=== PATIENT | male | born 1935 | race Caucasian/White ===

== ENCOUNTER 2017-05-12 17:41 | Inpatient (IN) ==
[2017-05-12] MEDS ORDERED: 0.9 % SODIUM CHLORIDE 1,000 ML IV ONE ×2 (17:46→19:04)
[2017-05-12 18:21] LABS: Basophils # (Auto) 0 K/mcL (0.0-0.3); Basophils % (Auto) 0.1 % (0.0-2.0); Eosinophils # (Auto) 0 K/mcL (0.0-0.7); Eosinophils % (Auto) 0.1 % (0.0-7.0); Granulocytes % (Auto) 87.7 % (38.0-78.0); Lymphocytes # (Auto) 0.9 K/mcL (1.5-4.8); Lymphocytes % (Auto) 7.2 % (15.5-49.0); Mean Cell Volume 95.5 fL (80.0-100.0); Mean Corpuscular HGB Conc 33.4 g/dL (31.0-36.0); Mean Corpuscular Hemoglobin 31.9 pg (26.0-34.0); Monocytes # (Auto) 0.6 K/mcL (0.1-0.9); Monocytes % (Auto) 4.9 % (1.0-12.0); Platelet Count 141 K/mcL (140-440); RBC 4.16 M/mcL (4.50-5.90); Red Cell Distribution Width 14.1 % (11.5-14.5)
--- NOTE | 2017-05-12 18:21 | Emergency Department Note ---
Abdominal Pain HPI - General Chief Complaint: Abdominal Pain Stated Complaint: Abd pain, N/V Time Seen by Provider: 05/12/17 17:49 Source: patient Mode of arrival: ambulatory Limitations: no limitations - History of Present Illness HPI Narrative: 82-year-old male presents with family due to increased weakness, poor intake and continued abdominal pain. He was seen here yesterday morning for urinary retention and was diagnosed with a large kidney stone in the left renal pelvis. He was sent home with Levaquin for a urinary tract infection and hydrocodone for pain. His states he has been retching after eating but has not vomited today. She is given him his Levaquin. She states he is taking in fluids but he is very shaky and weak. She states that she has emptied the catheter leg bag 3 or 4 times since yesterday. He has been sweating a lot throughout the night and she took his temperature and it was 99.9. He states he is feeling okay right now and the abdominal pain is on the left side. He also had a knee replacement done last month and after surgery had a stomach ulcer. He has had some nausea from that. His gave him a dissolvable medication that coats the stomach and give him that pill about 3:00 this afternoon. He states his nausea is under control. He has had a history of kidney stones and lithotripsy. He states he feels weak all over. He has not had a bowel movement since Tuesday. They are wanting to get the catheter out on Tuesday but they are concerned that he is very weak today. He has not fallen. He takes Plavix due to multiple vascular surgeries on the lower extremities. No shortness of breath or chest pain. His gives his fluids but his thirst is not quenched. - Related Data Home Medications Medication Instructions Recorded Confirmed Clopidogrel [Plavix] 75 mg PO DAILY 06/30/15 05/12/17 Tamsulosin [Flomax] 0.4 mg PO ONCE 06/30/15 05/12/17 pantoprazole 40 mg tablet,delayed 40 mg PO QDAY 01/27/17 05/12/17 release Previous Rx's Medication Instructions Recorded HYDROcodone/APAP 5/325MG [[place] 1 tab PO Q4HP PRN #14 tablet 05/11/17 5/325Mg] Levofloxacin [Levaquin] 500 mg PO DAILY #7 tablet 05/11/17 Ondansetron HCl [Zofran ODT] 4 mg SL Q4-6HP PRN #10 tablet 05/11/17 Allergies Allergy/AdvReac Type Severity Reaction Status Date / Time cilostazol AdvReac Intermediate RAPID HEART Verified 02/16/17 09:41 finasteride [From PROSCAR] AdvReac Intermediate WEAK BP LOW Verified 02/16/17 09 :41 morphine AdvReac Intermediate VOMITING Verified 02/16/17 09:41 From DILAUDID Allergy Unknown THROAT Uncoded 02/16/17 09:41 SWELLING Review of Systems All systems ED: reviewed and negative except as stated. Abdominal Pain PMH - Past Medical History Medical history: Reports: GI bleed (gastric ulcer), kidney stones, other ( periphera vascular disease, hiatal hernia) Surgical history ED: Reports: orthopedic, other (right knee replacement) Psychiatric history: Reports: no psych history Family history: Reports: no significant family history - Social History Smoking status: Never smoker Physical Exam - General Limitations: no limitations General appearance: alert, in no apparent distress - Head Head exam: atraumatic - Eye Eye exam: Present: other (right eye cataract) - Neck Neck exam: Present: normal inspection, full ROM. Absent: tenderness, lymphadenopathy - Chest Chest inspection: Present: normal inspection, symmetric chest wall rise - Respiratory Respiratory exam: Present: normal lung sounds bilaterally - Abdominal Exam Abdominal exam: Present: soft, tenderness, normal bowel sounds. Absent: guarding, rebound, rigidity, psoas sign Abdominal tenderness: Present: LUQ, LLQ, epigastrium, moderate - Extremities Exam Extremities exam: Present: normal inspection, full ROM - Neurological Exam Neurological exam: Present: alert, oriented X3, CN II-XII intact - Psychiatric Psychiatric exam: Present: normal affect, normal mood - Skin Skin exam: Present: warm, dry, intact Course Course Narrative: He will be admitted and care will be followed by Dr. Khalil. Vital Signs Temperature 98.7 F 05/12/17 17:42 Pulse Rate 92 H 05/12/17 17:42 Respiratory Rate 20 05/12/17 17:42 Blood Pressure 153/83 05/12/17 17:42 Pulse Oximetry (%) 95 05/12/17 17:42 Temperature 98.7 F 05/12/17 17:42 Pulse Rate 92 H 05/12/17 18:31 Respiratory Rate 20 05/12/17 17:42 Blood Pressure 144/72 05/12/17 18:31 Pulse Oximetry (%) 96 05/12/17 18:31 Abdominal Pain - MDM Narrative Medical decision making narrative: Labs were significant for a rise in the creatinine from 0.9 yesterday to 1.5 today. BUN went from 23 to 32 today. He also had an increase in his white count from 9.5 yesterday to 12.5 today. - Lab Data Lab results reviewed: Yes I reviewed the patient's lab results. Result diagrams: 05/12/17 17:50 05/12/17 17:50 Lab Results 05/12/17 05/12/17 05/12/17 Range/Units 17:50 17:50 18:44 WBC 12.5 H (4.5-11.0) K/mcL RBC 4.16 L (4.50-5.90) M/mcL Hgb 13.3 L (13.5-16.5) g/dL Hct 39.7 L (41.0-55.0) % MCV 95.5 (80.0-100.0) fL MCH 31.9 (26.0-34.0) pg MCHC 33.4 (31.0-36.0) g/dL RDW 14.1 (11.5-14.5) % Plt Count 141 (140-440) K/mcL MPV 8.5 (7.4-10.4) fL Gran % 87.7 H (38.0-78.0) % Lymph % (Auto) 7.2 L (15.5-49.0) % [place] % (Auto) 4.9 (1.0-12.0) % Eos % (Auto) 0.1 (0.0-7.0) % Baso % (Auto) 0.1 (0.0-2.0) % Gran # 11.0 H (1.8-8.0) K/mcL Lymph # (Auto) 0.9 L (1.5-4.8) K/mcL [place] # (Auto) 0.6 (0.1-0.9) K/mcL Eos # (Auto) 0 (0.0-0.7) K/mcL Baso # (Auto) 0 (0.0-0.3) K/mcL VBG Lactic Acid 1.0 (0.5-2.2) mmol/L Sodium 135 (133-145) mmol/L Potassium 4.1 (3.3-5.1) mmol/L Chloride 101 (96-108) mmol/L Carbon Dioxide 22 (22-30) mmol/L Anion Gap 12.0 (8-16) BUN 32 H (8-23) mg/dl Creatinine 1.5 H (0.7-1.2) mg/dl GFR Calculation 43 Glucose 170 H (70-105) mg/dL Calcium 9.3 (8.6-10.4) mg/dl Total Bilirubin 0.7 (0.0-1.0) mg/dL AST 52 H (0-37) U/l ALT 79 H (0-40) U/l Alkaline Phosphatase 124 H (39-117) U/L Total Protein 6.2 (5.9-8.4) gm/dL Albumin 3.4 (3.2-5.2) gm/dL Globulin 2.8 (2.2-3.7) gm/dL Albumin/Globulin Ratio 1.2 (1.0-2.3) Urine Color Urine Appearance Urine pH (5.0-9.0) Ur Specific [place] (1.000-1.035) Urine Protein (NEG) mg/dL Urine Glucose (UA) (NEG) mg/dL Urine Ketones (NEG) mg/dL Urine Occult Blood (<0.03) mg/dL Urine Nitrate (NEG) Urine Bilirubin (NEG) mg/dL Urine Urobilinogen (NEG) mg/dL Ur Leukocyte Esterase (NEG) /uL Urine RBC (0-1) /hpf Urine WBC (0-4) /hpf Ur Squamous Epith Cells (0-4) /hpf Other Crystals (0) /hpf Urine Bacteria (0) /hpf Urine Mucus (0) /hpf Ur Culture Indicated? 05/12/17 Range/Units 19:03 WBC (4.5-11.0) K/mcL RBC (4.50-5.90) M/mcL Hgb (13.5-16.5) g/dL Hct (41.0-55.0) % MCV (80.0-100.0) fL MCH (26.0-34.0) pg MCHC (31.0-36.0) g/dL RDW (11.5-14.5) % Plt Count (140-440) K/mcL MPV (7.4-10.4) fL Gran % (38.0-78.0) % Lymph % (Auto) (15.5-49.0) % [place] % (Auto) (1.0-12.0) % Eos % (Auto) (0.0-7.0) % Baso % (Auto) (0.0-2.0) % Gran # (1.8-8.0) K/mcL Lymph # (Auto) (1.5-4.8) K/mcL [place] # (Auto) (0.1-0.9) K/mcL Eos # (Auto) (0.0-0.7) K/mcL Baso # (Auto) (0.0-0.3) K/mcL VBG Lactic Acid (0.5-2.2) mmol/L Sodium (133-145) mmol/L Potassium (3.3-5.1) mmol/L Chloride (96-108) mmol/L Carbon Dioxide (22-30) mmol/L Anion Gap (8-16) BUN (8-23) mg/dl Creatinine (0.7-1.2) mg/dl GFR Calculation Glucose (70-105) mg/dL Calcium (8.6-10.4) mg/dl Total Bilirubin (0.0-1.0) mg/dL AST (0-37) U/l ALT (0-40) U/l Alkaline Phosphatase (39-117) U/L Total Protein (5.9-8.4) gm/dL Albumin (3.2-5.2) gm/dL Globulin (2.2-3.7) gm/dL Albumin/Globulin Ratio (1.0-2.3) Urine Color Yellow Urine Appearance Clear Urine pH 6.0 (5.0-9.0) Ur Specific [place] 1.024 (1.000-1.035) Urine Protein 30 A (NEG) mg/dL Urine Glucose (UA) 50 A (NEG) mg/dL Urine Ketones Neg (NEG) mg/dL Urine Occult Blood 0.2 A (<0.03) mg/dL Urine Nitrate Neg (NEG) Urine Bilirubin Neg (NEG) mg/dL Urine Urobilinogen Neg (NEG) mg/dL Ur Leukocyte Esterase 250 A (NEG) /uL Urine RBC 73 H (0-1) /hpf Urine WBC 45 H (0-4) /hpf Ur Squamous Epith Cells 0 (0-4) /hpf Other Crystals Few A (0) /hpf Urine Bacteria 0 (0) /hpf Urine Mucus Few (0) /hpf Ur Culture Indicated? Yes Disposition Pt seen by [facility] INSPECTOR/PA only: No Clinical Impression: Urinary tract infection, Kidney stone on left side, Weakness Disposition: Xfer As Inpt ([facility]) Condition: Fair Referrals: Yolanda Odonnell, [Primary Care Provider] -
[2017-05-12 18:35] LABS: ALT/SGPT 79 U/l (0-40); Albumin 3.4 gm/dL (3.2-5.2); Albumin/Globulin Ratio 1.2 (1.0-2.3); Alkaline Phosphatase 124 U/L (39-117); Blood Urea Nitrogen 32 mg/dl (8-23)
[2017-05-12 19:37] LABS: Appearance,Urine CLEAR; Bacteria,Urine 0 /hpf (0); Bilirubin,Urine NEG (NEG); Color,Urine YELLOW; Glucose,Urine (UA) 50 mg/dL (NEG); Leukocyte Esterase,Urine 250 /uL (NEG); Mucus,Urine FEW /hpf (0); Nitrate,Urine NEG (NEG); Other Crystals,Urine FEW /hpf (0); Protein,Urine 30 mg/dL (NEG); Specific Gravity,Urine 1.024 (1.000-1.035); Urine Blood 0.2 mg/dL (<0.03); Urine RBC 73 /hpf (0-1); Urine Squamous Epithelial Cell 0 /hpf (0-4); Urine WBC 45 /hpf (0-4); Urobilinogen,Urine NEG (NEG)
[2017-05-12] MEDS ORDERED: HYDROmorphone 2 MG/ML SYRINGE IV ONE (19:50)
[2017-05-12] MEDS ORDERED: MAGNESIUM HYDROXIDE 30 ML ORAL.SUSP PO PRN (20:31)
[2017-05-12] MEDS ORDERED: ONDANSETRON 4 MG/2 ML VIAL IV PRN (20:31)
[2017-05-12] MEDS ORDERED: ACETAMINOPHEN 325 MG TABLET PO PRN (20:31)
[2017-05-12] MEDS ORDERED: oxyCODONE/APAP 5/325MG TABLET PO PRN (20:31)
[2017-05-12] MEDS ORDERED: DOCUSATE SODIUM 100 MG CAPSULE PO PRN (20:31)
[2017-05-12] MEDS ORDERED: POTASSIUM CHLORIDE 20 MEQ/10 ML VIAL IV ONE (20:39)
[2017-05-12] MEDS: POTASSIUM CHLORIDE 10 MEQ in 0.45 % SODIUM CHLORIDE 1,000 ML IV SCH (20:40)
--- NOTE | 2017-05-12 20:42 | Internal Med History&Physical ---
Medical - H&P: HPI Patient information: Note initiated : 05/12/17 at 8:37 pm Patient: Marshall Alberts 82 y/o M admitted on 05/12/17 for Abd pain, nephrolithiasis, hydronephrosis, UTI. History of present illness: Mr. Alberts is a 82 year old man admitted after failed outpt tx for UTI, nephrolithiasis with hydronephrosis. He reports he was in his normal state of health until 2 days ago, when he developed left lower quadrant discomfort and fullness. He was having some sweats as well as some nausea. He presented to the emergency room yesterday, and was found to have nephrolithiasis, left-sided hydronephrosis, UTI. Colvin catheter was placed, and he was started on IV Levaquin in the ER, and then discharged home on oral Levaquin. Overnight he had more sweats. His family reports that he is just been listless, dizzy, has significant anorexia, and continues to complain of extremely dry mouth. He has had nausea and minimal vomiting. He denies overt fever, headaches, new eye or ear symptoms, sore throat or cough , chest pain or palpitations, shortness of breath. He does not report flank pain. His says he has not had a bowel movement for about 3 days now. Has been tolerating the Colvin catheter since yesterday. ER evaluation shows that his white blood cell count is elevated now, and BUN and creatinine are now in the abnormal range. Patient is now being admitted for failing outpatient treatment. Medical History BPH (benign prostatic hyperplasia) (Acute) Dr. 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 [place], once per year Cataract (Chronic ~2013) Foreign body in eye (Chronic ~1962) Steel in eye 1961 Joint pain (Chronic) PAD (peripheral artery disease) (Chronic ~1986) unable to tolerate statin therapy Stomach ulcer (Chronic ~2004) Bleeding Ulcer 2006 Daytime sleepiness (Resolved) Surgical History H/O colonoscopy (Chronic) H/O shoulder surgery (Chronic) History of cholecystectomy (Chronic) Medication List clopidogrel 75 mg PO DAILY pantoprazole 40 mg PO QDAY tamsulosin 0.4 mg PO ONCE zofran prn levaquin 500 mg qd norco 5/325 q 4 h prn Allergies/Adverse Reactions cilostazol Adverse Reaction (Intermediate, Verified 02/16/17 09:41) RAPID HEART finasteride [From PROSCAR] Adverse Reaction (Intermediate, Verified 02/16/17 09: 41) WEAK BP LOW morphine Adverse Reaction (Intermediate, Verified 02/16/17 09:41) VOMITING From DILAUDID Allergy (Unknown, Uncoded 02/16/17 09:41) THROAT SWELLING Family History Father Arthritis Sister Arthritis Cancer Stroke Brother Arthritis Diabetes Mother Cancer-possible uterine or bladder. Social History marital status: smoking status: Never smoker alcohol intake frequency: a few times a month substance use type: does not use Medical - H&P: Meds Home Medications Medication Instructions Recorded Confirmed Type Clopidogrel [Plavix] 75 mg PO DAILY 06/30/15 05/12/17 History Tamsulosin [Flomax] 0.4 mg PO ONCE 06/30/15 05/12/17 History pantoprazole 40 mg tablet,delayed 40 mg PO QDAY 01/27/17 05/12/17 History release HYDROcodone/APAP 5/325MG [[place] 1 tab PO Q4HP PRN #14 tablet 05/11/17 05/12/17 Rx 5/325Mg] Levofloxacin [Levaquin] 500 mg PO DAILY #7 tablet 05/11/17 05/12/17 Rx Ondansetron HCl [Zofran ODT] 4 mg SL Q4-6HP PRN #10 tablet 05/11/17 05/12/17 Rx Allergies Allergy/AdvReac Type Severity Reaction Status Date / Time cilostazol AdvReac Intermediate RAPID HEART Verified 02/16/17 09:41 finasteride [From PROSCAR] AdvReac Intermediate WEAK BP LOW Verified 02/16/17 09 :41 morphine AdvReac Intermediate VOMITING Verified 02/16/17 09:41 From DILAUDID Allergy Unknown THROAT Uncoded 02/16/17 09:41 SWELLING Medical - H&P: Exam - Constitutional Vitals: Temp Pulse Resp BP Pulse Ox 98.7 F 92 H 20 144/72 96 05/12/17 20:15 05/12/17 20:15 05/12/17 20:15 05/12/17 20:15 05/12/17 20:15 Heart rate ranged from 80-109 over the last few days. On exam, this is an elderly man who appears quite fatigued. He is somewhat slow to answer questions, but his and daughter are with him, and help with the history. Head: Normocephalic, atraumatic. Eyes: Right cornea is clouded over, due to previous injury, and has no vision. Left pupil is fairly pinpoint. EOMI, anicteric. Ears: TMs and canals are clear. Pharynx: Mucosa is rather dry. Upper jaw is edentulous. Pharynx is clear. Neck: Is supple, without obvious lymphadenopathy, JVD, thyromegaly, bruits. Cardiac exam: Shows regular rate and rhythm with normal S1 and S2 with no murmurs, rubs, gallops. Lungs have a few crackles at the bases, but otherwise are clear, without obvious rhonchi or wheezes. Abdomen: Is soft, but he has some vague diffuse tenderness, which is worse in the left lower quadrant. There is some guarding, but no rebound. He denies significant CVA tenderness. Bowel sounds are decreased. There are no obvious masses. Colvin catheter is draining somewhat dark but clear urine. Extremities: Show no significant edema, cyanosis, clubbing. Pulses are decreased. Neurologic exam: Grossly nonfocal. Skin exam: Shows no obvious rashes or other worrisome lesions. Medical - H&P: Reslt - Labs CBC & Chem 7: 05/12/17 17:50 05/12/17 17:50 Labs: May 12: CBC differential shows an absolute granulocyte count of 11,000, lymphocyte count 900 Lactic acid is normal at 1.0 next AST is elevated at 52, ALT 79, alk phos 124 Urinalysis: Specific gravity 1.024, protein 30 mg, glucose 50 mg, 250 leukocyte esterase, 73 red cells, 45 white blood cells May 11: Urine culture: No growth so far CT scan: Bilateral kidney stones, largest in the left renal pelvis and measuring 1.4 cm. Moderate hydronephrosis on the left side, due to a cluster of stones in the distal left ureter. 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 Subtle emphysema of both lower lobes. [place]. Moderate prostate enlargement. Advanced atherosclerotic disease. Severe spinal canal stenosis at L4-5 due to spurs and bulging disc. Medical - H&P: A/P (1) Ureteral stone with hydronephrosis Current visit: Yes Status: Acute (2) VEL (acute kidney injury) Current visit: Yes Status: Acute (3) Urinary tract infection Current visit: Yes Status: Acute (4) Calculus of kidney Current visit: No Status: Acute (5) Urinary retention Current visit: No Status: Acute (6) PAD (peripheral artery disease) Problem details: unable to tolerate statin therapy Current visit: No Status : Chronic - Narrative A/P Narrative: #1. . This patient presents with urinary tract infection, acute urinary retention, stones of the left kidney and ureter and bladder, causing left hydronephrosis. He has failed outpatient treatment with a Colvin catheter and oral antibiotics, and is now admitted for more aggressive management. -Urology consult in the morning. -IV fluids -Pain control -Cover with IV Zosyn, pending urine culture results. Blood cultures are also ordered. #2. Hyperglycemia, without history of diabetes.. -IV fluids. Cover with insulin as needed. 3. GI. Elevated LFTs. Of uncertain cause. Continue to monitor. -History of GERD and peptic ulcer disease, status post recent EGD. Continue Protonix. 4. Renal. Patient presents with acutely elevated BUN and creatinine. -IV fluids. -Probable ureteral stent tomorrow to relieve hydronephrosis. Next 5. CODE STATUS: Full code. His has his power of workers compensation attorney. 6. DVT prophylaxis: Continue Plavix. Hold off on heparin, as he will likely have a procedure tomorrow. Add SCDs. -Patient also has a history of previous DVTs. Continue Plavix. 7. Peripheral vascular disease. Continue Plavix. Early ambulation. Approximately 60 minutes was spent this evening, reviewing the patient's records and test results, reviewing the case with the ER MD, interviewing and examining the patient, reviewing plan of care with the patient and his family, touching base with urology, and writing orders.
[2017-05-12] MEDS ORDERED: PIPERACILLIN SODIUM/TAZOBACTAM 3.375 GM VIAL IV ONE (20:44)
[2017-05-12] MEDS ORDERED: DEXTROSE 31 GM ORAL.SUSP PO PRN (21:35)
[2017-05-12] MEDS ORDERED: DEXTROSE 50% 50 ML VIAL IV PRN (21:35)
[2017-05-12] MEDS: 0.9 % SODIUM CHLORIDE 10 ML SYRINGE IV SCH (22:00)
[2017-05-12] MEDS: PIPERACILLIN SODIUM/TAZOBACTAM 3.375 GM in DEXTROSE 5% IN WATER 50 ML IV SCH (22:00)
[2017-05-13] MEDS ORDERED: PIPERACILLIN SODIUM/TAZOBACTAM 3.375 GM VIAL IV ONE ×2 (01:58→05:39)
[2017-05-13] MEDS: PIPERACILLIN SODIUM/TAZOBACTAM 3.375 GM in DEXTROSE 5% IN WATER 50 ML IV SCH ×5 (02:15→23:47)
[2017-05-13] MEDS: 0.9 % SODIUM CHLORIDE 10 ML SYRINGE IV SCH ×2 (06:03→14:40)
[2017-05-13] MEDS: INSULIN LISPRO 1 UNIT/0.01 ML UNIT SQ SCH ×4 (07:12→21:32)
[2017-05-13] MEDS ORDERED: HYDROmorphone 2 MG/ML SYRINGE IV PRN ×2 (07:28→14:09)
[2017-05-13] MEDS ORDERED: PANTOPRAZOLE 40 MG VIAL IV SCH (07:30)
[2017-05-13] MEDS ORDERED: ceFAZolin 1 GM VIAL IV SCH (07:30)
[2017-05-13 07:43] LABS: Basophils # (Auto) 0 K/mcL (0.0-0.3); Basophils % (Auto) 0.1 % (0.0-2.0); Eosinophils # (Auto) 0 K/mcL (0.0-0.7); Eosinophils % (Auto) 0.2 % (0.0-7.0); Granulocytes % (Auto) 82.4 % (38.0-78.0); Lymphocytes # (Auto) 0.9 K/mcL (1.5-4.8); Lymphocytes % (Auto) 9.8 % (15.5-49.0); Mean Cell Volume 96.2 fL (80.0-100.0); Mean Corpuscular HGB Conc 33.5 g/dL (31.0-36.0); Mean Corpuscular Hemoglobin 32.2 pg (26.0-34.0); Monocytes # (Auto) 0.7 K/mcL (0.1-0.9); Monocytes % (Auto) 7.5 % (1.0-12.0); Platelet Count 116 K/mcL (140-440); RBC 3.68 M/mcL (4.50-5.90); Red Cell Distribution Width 13.8 % (11.5-14.5)
[2017-05-13 08:02] LABS: ALT/SGPT 57 U/l (0-40); Albumin/Globulin Ratio 1.3 (1.0-2.3); Alkaline Phosphatase 110 U/L (39-117); Bilirubin,Direct 0.2 mg/dL (0.0-0.3); Blood Urea Nitrogen 28 mg/dl (8-23); Gamma Glutamyl Transpeptidase 76 U/L (8-61); Magnesium 1.8 mg/dL (1.6-2.5); Uric Acid 3.5 mg/dL (2.5-8.0)
--- NOTE | 2017-05-13 08:04 | Consultation ---
DATE OF CONSULTATION: 05/13/2017 HISTORY OF PRESENT ILLNESS: The patient is an 82-year-old gentleman who I was contacted about last night because of renal stones. It appears that he has a 1.4 cm stone in the left kidney, also smaller stones and in the distal left ureter he has a 7 mm stone. He has been having nausea, vomiting and difficulty with urination. He also has stones on the right side and bladder stones. He was seen in the Emergency Room for left lower quadrant pain. He did have some nausea and vomiting. He was having difficulty with urination. A Colvin catheter was placed. He was diagnosed with an infection and was started on Levaquin. Last night he was having more discomfort and his family was concerned that he was not drinking or eating enough. The hospitalist was kind enough to admit this patient. He presents now for evaluation. PAST MEDICAL HISTORY: BPH, peptic ulcer disease, obstipation arthritis, joint pain. ALLERGIES: FINASTERIDE, CILOSTAZOL and DILAUDID, which caused some obstipation. CURRENT MEDICATIONS: 1. Tamsulosin. 2. Prevacid. 3. Plavix. FAMILY HISTORY: Noncontributory. SOCIAL HISTORY: , does not smoke, does not drink. REVIEW OF SYSTEMS: Unchanged from the hospitalist's dictation on 05/12/17. This was reviewed with the patient. PHYSICAL EXAMINATION: GENERAL: This is a pleasant gentleman in no apparent distress. VITAL SIGNS: As listed per nurse's notes. NECK: Supple. Trachea is in the midline. No difficulty with swallowing. EYES: Right cornea is clouded over, left is normal. HEART: Regular rate and rhythm. LUNGS: Clear to auscultation. ABDOMEN: Soft, slight tenderness on the left side. No masses are felt. : Scrotum without lesion. No hydrocele, no varicocele. Testicles are down in their normal position and normal size and consistency. Epididymides are without cysts. Meatus is at the end of his penis. He does have a Colvin catheter exiting the penis. Penis is uncircumcised, he is able to retract his foreskin. No hernias are appreciated. RECTAL: Deferred. EXTREMITIES: Without clubbing, cyanosis or edema. NEUROLOGIC: Cranial nerves II-XII grossly intact. IMPRESSION AND PLAN: Patient with a distal left ureteral stone and also a large stone in the left kidney. I have gone over this with the family and the patient, and I feel that we should intervene. I would try to remove the bladder stones and also do ureteroscopy to remove the distal left ureteral stone. For the proximal stone, I would place a stent and this could be treated later with lithotripsy. I have gone over the procedure with the patient and his family and complications including bleeding, infection, pain, and irritation from the stent and they understand. A full PARQ discussion was held. We will follow up at the time of surgery. FRANTZ:kinsey Job ID: [id number] Doc ID: [id number] Ronald Harper MD
[2017-05-13] MEDS: POTASSIUM CHLORIDE 10 MEQ in 0.45 % SODIUM CHLORIDE 1,000 ML IV SCH ×2 (08:18→17:48)
--- NOTE | 2017-05-13 08:37 | Emergency Department Note ---
ED Note Addendum Note Addendum: I initially saw this patient 2 days ago. He comes back in for recheck and has been evaluated by the mid-level provider. I did reexamine the patient and agree with the assessment and plan with the mid-level. Patient will be admitted to the hospital Dr. Harper will consult in the morning.
[2017-05-13] MEDS ORDERED: CLOPIDOGREL 75 MG TABLET PO SCH (09:00)
--- NOTE | 2017-05-13 11:54 | Internal Med Progress Note ---
Medical - PN: Subj Patient information: Note initiated : 05/13/17 at 11:54 am Service Date, if different from initiated Date: [] Patient: Marshall Alberts 82 y/o M admitted on 05/12/17 for N/V, Abd Pain/ Nephrolithiasis, Hydronephrosis, UTI. Chief Complaint: [] Interval history: May 12, 2017: History of present illness: Mr. Alberts is a 82 year old man admitted after failed outpt tx for UTI, nephrolithiasis with hydronephrosis. He reports he was in his normal state of health until 2 days ago, when he developed left lower quadrant discomfort and fullness. He was having some sweats as well as some nausea. He presented to the emergency room yesterday, and was found to have nephrolithiasis, left-sided hydronephrosis, UTI. Colvin catheter was placed, and he was started on IV Levaquin in the ER, and then discharged home on oral Levaquin. Overnight he had more sweats. His family reports that he is just been listless, dizzy, has significant anorexia, and continues to complain of extremely dry mouth. He has had nausea and minimal vomiting. He denies overt fever, headaches, new eye or ear symptoms, sore throat or cough , chest pain or palpitations, shortness of breath. He does not report flank pain. His says he has not had a bowel movement for about 3 days now. Has been tolerating the Colvin catheter since yesterday. ER evaluation shows that his white blood cell count is elevated now, and BUN and creatinine are now in the abnormal range. Patient is now being admitted for failing outpatient treatment. May 13: Today, the patient underwent a cystoscopy with Dr. Harper. Dr. Harper was able to remove some of the ureteral stones, and I believe he placed a stent, but there was enough bleeding that he could not remove the bladder or kidney stones. He had excess bleeding due to his chronic Plavix therapy. The patient tolerated the procedure well, but this afternoon started to have increasing abdominal pain. He had only voided 300 mL of urine over the course of the afternoon, and bladder scan did show urinary retention, so the Colvin catheter was replaced. He is now having irrigation as needed. He is currently feeling quite a bit better, and says his pain is much better control. He otherwise denies fever or chills, headaches or dizziness, chest pain or shortness of breath, nausea or vomiting, diarrhea or constipation. - Constitutional Vitals: Vital Signs Temp Pulse Resp BP Pulse Ox 98.1 F 88 20 152/86 95 05/13/17 11:32 05/13/17 08:30 05/13/17 11:32 05/13/17 11:32 05/13/17 11:32 Period Temp Pulse Resp BP Sys/Fox Pulse Ox Last 24 Hr 97.8 F-98.9 F 88-91 14-20 129-159/76-86 91-95 Intake and Output 05/12/17 05/13/17 05/13/17 21:59 05:59 13:59 Intake Total 600 / 1600 500 / 500 1005 / 1005 Output Total 500 / 500 575 / 575 Balance 600 / 1600 0 / 0 430 / 430 Weight 172 lb 8 oz Intake & Output: Intake & Output 05/12/17 05/13/17 05/13/17 21:59 05:59 13:59 Intake Total 600 / 1600 500 / 500 1005 / 1005 Output Total 500 / 500 575 / 575 Balance 600 / 1600 0 / 0 430 / 430 Weight 172 lb 8 oz Intake: IV 600 / 600 1005 / 1005 Potassium Chloride 10 Meq 1005 / 1005 In Sodium Chloride 0.45% 1,000 ml @ 100 mls/hr IV .Q10H3M [facility] Rx#: [id number] Oral 500 / 500 Output: Urine Catheter Amount 500 / 500 575 / 575 Neck: Is supple, without obvious JVD. Cardiac exam: Shows regular rate and rhythm Lungs have a few crackles at the bases, but otherwise are clear, without obvious rhonchi or wheezes. Abdomen: Is soft, with much decreased tenderness. There is no guarding or rebound. Bowel sounds are active. Colvin catheter is now draining very pink urine. Extremities: Show no significant edema. Neurologic exam: Grossly nonfocal. Medical - PN: Obj Da - Labs CBC & Chem 7: 05/13/17 06:40 05/13/17 06:40 Labs: Abnormal Lab Results 05/13/17 05/13/17 05/13/17 10:41 06:40 06:40 RBC 3.68 L Hgb 11.9 L Hct 35.4 L Plt Count 116 L Gran % 82.4 H Lymph % (Auto) 9.8 L Lymph # (Auto) 0.9 L POC PT 15.1 H POC INR 1.3 H Carbon Dioxide 21 L BUN 28 H Creatinine 1.4 H Glucose 112 H Phosphorus 2.1 L GGT 76 H ALT 57 H Total Protein 5.4 L Albumin 3.0 L May 13: Urine culture is still pending. May 12: CBC differential shows white blood cell count of 12,500, hemoglobin 13, hematocrit 39.7, platelets 141,000, an absolute granulocyte count of 11,000, lymphocyte count 900 Lactic acid is normal at 1.0 next AST is elevated at 52, ALT 79, alk phos 124 Urinalysis: Specific gravity 1.024, protein 30 mg, glucose 50 mg, 250 leukocyte esterase, 73 red cells, 45 white blood cells May 11: Urine culture: No growth so far CT scan: Bilateral kidney stones, largest in the left renal pelvis and measuring 1.4 cm. Moderate hydronephrosis on the left side, due to a cluster of stones in the distal left ureter. 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 Subtle emphysema of both lower lobes. John David. Moderate prostate enlargement. Advanced atherosclerotic disease. Severe spinal canal stenosis at L4-5 due to spurs and bulging disc. Meds: Medications Acetaminophen (Tylenol) 650 mg PO Q6HP PRN PRN Reason: PAIN/FEVER > 101 Last Admin: 05/13/17 07:06 Dose: 650 mg Clopidogrel Bisulfate (Plavix) 75 mg PO DAILY [facility] Last Admin: 05/13/17 08:13 Dose: Not Given Dextrose (Dextrose 50%) 0 ml IV UD PRN PRN Reason: Hypoglycemia Diagnostic Test (Pha) (Accu-Chek) 1 each FS ACHS [facility] Last Admin: 05/13/17 11:28 Dose: 1 each Docusate Sodium (Colace) 100 mg PO BIDP PRN PRN Reason: Constipation Glucose (Insta-Glucose) 15 gm PO PRN PRN PRN Reason: Hypoglycemia Hydromorphone HCl (Dilaudid) 1 - 2 mg IV Q4-6HP PRN PRN Reason: Pain Last Admin: 05/13/17 08:11 Dose: 1 mg Piperacillin Sod/Tazobactam (Sod 3.375 gm/ Dextrose) 50 mls @ 100 mls/hr IV Q6H [facility] Last Admin: 05/13/17 06:03 Dose: Not Given Potassium Chloride 10 meq/ (Sodium Chloride) 1,005 mls @ 100 mls/hr IV .Q10H3M [facility] Last Admin: 05/13/17 08:18 Dose: 100 mls/hr Insulin Human Lispro (Humalog) 0 unit SQ ACHS [facility] PRN Reason: Protocol Last Admin: 05/13/17 11:28 Dose: Not Given Magnesium Hydroxide (Milk Of Magnesia) 30 ml PO DAILYP PRN PRN Reason: Constipation Ondansetron HCl (Zofran) 4 mg IV Q6HP PRN PRN Reason: Nausea And Vomiting Oxycodone/Acetaminophen (Percocet 5-325 Mg) 1 tab PO Q4HP PRN PRN Reason: Pain Pantoprazole Sodium (Protonix) 40 mg IV QAMAC [facility] Last Admin: 05/13/17 07:07 Dose: 40 mg Sodium Chloride (Saline Flush) 10 ml IV Q8 [facility] Last Admin: 05/13/17 06:03 Dose: Not Given Tamsulosin HCl (Flomax) 0.4 mg PO HS [facility] Medical - PN: A/P - Time Spent With Patient Total time spent is greater than 50% in coordination of care (as documented) at patient's floor/unit and/or counseling patient: (1) Ureteral stone with hydronephrosis Status: Acute Current Visit: Yes (2) VEL (acute kidney injury) Status: Acute Current Visit: Yes (3) Urinary tract infection Status: Acute Current Visit: Yes (4) Calculus of kidney Status: Acute Current Visit: No (5) Urinary retention Status: Acute Current Visit: No (6) PAD (peripheral artery disease) Problem details: unable to tolerate statin therapy Status: Chronic Current Visit: No - Narrative A/P Narrative: #1. . This patient presents with urinary tract infection, acute urinary retention, stones of the left kidney and ureter and bladder, causing left hydronephrosis. He has failed outpatient treatment with a Colvin catheter and oral antibiotics, and is now admitted for more aggressive management. -He is now status post stenting and breaking up of some of the stones. His pain is much improved. Colvin catheter was placed for urine retention, possibly due to blood clots. We will reevaluate in the morning. -IV fluids -Pain control -Cover with IV Zosyn, pending urine culture results. Blood cultures are also ordered. #2. Hyperglycemia, without history of diabetes.. Improved today. -IV fluids. Cover with insulin as needed. 3. GI. Elevated LFTs. Of uncertain cause. Improving. -History of GERD and peptic ulcer disease, status post recent EGD. Continue Protonix. 4. Renal. Patient presents with acutely elevated BUN and creatinine. -Improving. Continue IV fluids. 5. CODE STATUS: Full code. His has his power of administrative underwriter. 6. DVT prophylaxis: Continue Plavix. Hold off on heparin, as he will likely have a procedure tomorrow. Add SCDs. -Patient also has a history of previous DVTs. Continue Plavix. 7. Peripheral vascular disease. Continue Plavix. Early ambulation. Per Dr. Harper, the patient will need to come off Plavix if they are to try to remove his stones, but he suggested we leave him on the Plavix for now, and have him follow-up with his vascular surgeon prior to deciding how to handle his anticoagulation for a procedure. I would expect he would stop the Plavix and go on Lovenox for a week or so, and then stop that a couple of days prior to the procedure. Approximately 30 minutes was spent today, interviewing and examining the patient twice, reviewing test results, reviewing his case with Dr. Harper, and writing orders. Medical - PN: Qual - VTE Deep Vein Thrombosis/Pulmonary Embolism Present on Admission: No
[2017-05-13] MEDS ORDERED: LIDOCAINE HCL/PF 100 MG/5 ML SYRINGE IV ONE (12:00)
[2017-05-13] MEDS ORDERED: MIDAZOLAM 2 MG/2 ML VIAL IV ONE (12:00)
[2017-05-13] MEDS ORDERED: ONDANSETRON 4 MG/2 ML VIAL IV ONE (12:00)
[2017-05-13] MEDS ORDERED: fentaNYL 100 MCG/2 ML VIAL IV ONE (12:00)
[2017-05-13] MEDS ORDERED: PROPOFOL 200 MG/20 ML VIAL IV ONE (12:00)
[2017-05-13] MEDS ORDERED: DEXAMETHASONE 10 MG/ML VIAL IV ONE (12:00)
[2017-05-13] MEDS ORDERED: FLUMAZENIL 0.1 MG/ML ML IV PRN (12:08)
[2017-05-13] MEDS ORDERED: BENZOCAINE/MENTHOL 1 LOZENGE PO PRN (12:08)
[2017-05-13] MEDS ORDERED: ONDANSETRON 4 MG/2 ML VIAL IV PRN ×2 (12:08→14:09)
[2017-05-13] MEDS ORDERED: ePHEDrine 50 MG/ML AMPUL IV PRN (12:08)
[2017-05-13] MEDS ORDERED: IPRATROPIUM/ALBUTEROL 3 ML AMPUL.NEB NEB PRN (12:08)
[2017-05-13] MEDS ORDERED: diphenhydrAMINE 50 MG/ML VIAL IV PRN (12:08)
[2017-05-13] MEDS ORDERED: METOPROLOL TARTRATE 5 MG/5 ML VIAL IV PRN (12:08)
[2017-05-13] MEDS ORDERED: ATROPINE SULFATE 0.4 MG/ML VIAL IV PRN (12:08)
[2017-05-13] MEDS ORDERED: METHOCARBAMOL 1,000 MG/10 ML VIAL IV PRN (12:08)
[2017-05-13] MEDS ORDERED: fentaNYL 100 MCG/2 ML VIAL IV PRN (12:08)
[2017-05-13] MEDS ORDERED: NALOXONE HCL 0.4 MG/ML VIAL IV PRN (12:08)
[2017-05-13] MEDS ORDERED: LACTATED RINGERS 1,000 ML IV SCH (12:15)
--- NOTE | 2017-05-13 12:35 | Brief Operative Note ---
Date of procedure: 05/13/17 Pre-op diagnosis: left ureteral stone Post-op diagnosis: same Procedure: left ureteroscopy, laser litho, stent Grafts/Implants: Yes (stent) Anesthesia: GLMA Findings: see note Surgeon: Ronald Harper
--- NOTE | 2017-05-13 13:04 | Operative Note ---
DATE OF OPERATION: 05/13/2017 PREOPERATIVE DIAGNOSES: Bilateral renal stones, lower left ureteral stones, bladder stones. POSTOPERATIVE DIAGNOSES: Bilateral renal stones, lower left ureteral stones, bladder stones. PROCEDURE: Cystoscopy, ureteroscopy with laser lithotripsy and stent placement. SURGEON: Ronald Harper MD. INDICATION: The patient is an 82-year-old gentleman who had sudden onset of left flank pain [address] scan does show a 1.4 cm stone in the left kidney, smaller stones on the right kidney, a 7 mm stone in the distal left ureter, and multiple bladder stones. He presents now for treatment. PROCEDURE: The patient was identified and consent was signed. He was given general anesthesia, placed in lithotomy position, and prepped and draped in a standard fashion. Cystourethroscopy showed normal appearing urethra. He did have a large prostate and orifices were in their normal position. He did have bladder stones. These were approximately 1 cm in size. I was able to see the orifice and was able to place the semi-rigid scope, and this facilitated the passage of the wire. With the wire in place, we were then able to see the stones on the left and break these up. This was fragmented, and the stone fragments were attempted to be removed, but these were too small and we could not remove those. The decision was made not to go after the renal stones and we will do this with lithotripsy because of the amount of bleeding present. He is on Plavix. I then did try to irrigate the bladder fully, and I could not really see the stones so the decision was made to leave the stent. A 6 x 26 stent was placed using the Seldinger technique which showed a good curl in the kidney and the bladder. His bladder was then drained. He was awoken and taken to recovery room in stable condition. He tolerated the procedure well. [id number] Job ID: [id number] Doc ID: [id number] Ronald Harper MD
[2017-05-13] MEDS ORDERED: oxyCODONE/APAP 5/325MG TABLET PO PRN (14:09)
[2017-05-13] MEDS ORDERED: DEXTROSE 31 GM ORAL.SUSP PO PRN (14:09)
[2017-05-13] MEDS ORDERED: ACETAMINOPHEN 325 MG TABLET PO PRN (14:09)
[2017-05-13] MEDS ORDERED: DEXTROSE 50% 50 ML VIAL IV PRN (14:09)
[2017-05-13] MEDS ORDERED: MAGNESIUM HYDROXIDE 30 ML ORAL.SUSP PO PRN (14:09)
[2017-05-13] MEDS ORDERED: DOCUSATE SODIUM 100 MG CAPSULE PO PRN (14:09)
--- NOTE | 2017-05-13 15:54 | XRay Report ---
HISTORY: Reason for Exam:INTRA OP URETEROSCOPY WITH LASER LITHOTRIPSY for left-sided kidney stone FINDINGS: Three intraoperative images were obtained. First image shows cystoscope in the bladder. Distal left ureter was cannulated. Second image shows a guidewire passing through the left ureter into the left renal pelvis. The large stone seen in the left renal pelvis on the preoperative CT done on 05/11/17 cannot be clearly identified on this exam. Third image shows a ureteral stent. Only the distal portion is visualized. The tip of the stent lies in the left mid pelvis. I cannot determine if this is within the bladder or entirely within the ureter. IMPRESSION: Left-sided ureteral stent was inserted Interpreted and Authenticated by: Karri Marroquin 05/13/17
[2017-05-13] MEDS ORDERED: TAMSULOSIN 0.4 MG CAPSULE PO SCH ×2 (21:00)
[2017-05-13] MEDS ORDERED: 0.9 % SODIUM CHLORIDE 10 ML SYRINGE IV SCH (22:00)
[2017-05-14] MEDS: POTASSIUM CHLORIDE 10 MEQ in 0.45 % SODIUM CHLORIDE 1,000 ML IV SCH ×4 (04:35→16:50)
[2017-05-14] MEDS ORDERED: DEXTROSE 31 GM ORAL.SUSP PO PRN (05:46)
[2017-05-14] MEDS ORDERED: MAGNESIUM HYDROXIDE 30 ML ORAL.SUSP PO PRN (05:46)
[2017-05-14] MEDS ORDERED: DOCUSATE SODIUM 100 MG CAPSULE PO PRN (05:46)
[2017-05-14] MEDS ORDERED: ACETAMINOPHEN 325 MG TABLET PO PRN (05:46)
[2017-05-14] MEDS ORDERED: ONDANSETRON 4 MG/2 ML VIAL IV PRN (05:46)
[2017-05-14] MEDS ORDERED: oxyCODONE/APAP 5/325MG TABLET PO PRN (05:46)
[2017-05-14] MEDS ORDERED: DEXTROSE 50% 50 ML VIAL IV PRN (05:46)
[2017-05-14] MEDS ORDERED: 0.9 % SODIUM CHLORIDE 250 ML IV ONE (05:52)
[2017-05-14 05:54] LABS: Basophils # (Auto) 0 K/mcL (0.0-0.3); Basophils % (Auto) 0.1 % (0.0-2.0); Eosinophils # (Auto) 0 K/mcL (0.0-0.7); Eosinophils % (Auto) 0.3 % (0.0-7.0); Granulocytes % (Auto) 78.2 % (38.0-78.0); Lymphocytes # (Auto) 1.1 K/mcL (1.5-4.8); Mean Cell Volume 95.7 fL (80.0-100.0); Mean Corpuscular HGB Conc 34.2 g/dL (31.0-36.0); Mean Corpuscular Hemoglobin 32.7 pg (26.0-34.0); Monocytes # (Auto) 0.8 K/mcL (0.1-0.9); Monocytes % (Auto) 9.4 % (1.0-12.0); Platelet Count 120 K/mcL (140-440); RBC 3.71 M/mcL (4.50-5.90); Red Cell Distribution Width 13.8 % (11.5-14.5)
--- NOTE | 2017-05-14 05:56 | Internal Med Progress Note ---
Medical - PN: Subj Patient information: Note initiated : 05/14/17 at 5:53 am Patient: Marshall Alberts 82 y/o M admitted on 05/12/17 for N/V, Abd Pain/ Nephrolithiasis, Hydronephrosis, UTI. Interval history: May 12, 2017: History of present illness: Mr. Alberts is a 82 year old man admitted after failed outpt tx for UTI, nephrolithiasis with hydronephrosis. He reports he was in his normal state of health until 2 days ago, when he developed left lower quadrant discomfort and fullness. He was having some sweats as well as some nausea. He presented to the emergency room yesterday, and was found to have nephrolithiasis, left-sided hydronephrosis, UTI. Colvin catheter was placed, and he was started on IV Levaquin in the ER, and then discharged home on oral Levaquin. Overnight he had more sweats. His family reports that he is just been listless, dizzy, has significant anorexia, and continues to complain of extremely dry mouth. He has had nausea and minimal vomiting. He denies overt fever, headaches, new eye or ear symptoms, sore throat or cough , chest pain or palpitations, shortness of breath. He does not report flank pain. His says he has not had a bowel movement for about 3 days now. Has been tolerating the Colvin catheter since yesterday. ER evaluation shows that his white blood cell count is elevated now, and BUN and creatinine are now in the abnormal range. Patient is now being admitted for failing outpatient treatment. May 13: Today, the patient underwent a cystoscopy with Dr. Harper. Dr. Harper was able to remove some of the ureteral stones, and I believe he placed a stent, but there was enough bleeding that he could not remove the bladder or kidney stones. He had excess bleeding due to his chronic Plavix therapy. The patient tolerated the procedure well, but this afternoon started to have increasing abdominal pain. He had only voided 300 mL of urine over the course of the afternoon, and bladder scan did show urinary retention, so the Colvin catheter was replaced. He is now having irrigation as needed. He is currently feeling quite a bit better, and says his pain is much better control. He otherwise denies fever or chills, headaches or dizziness, chest pain or shortness of breath, nausea or vomiting, diarrhea or constipation. May 14: - called to see pt around 0515 after AM vitals showed increased HR and lower BP. Last evening pt noted to be bradycardic with intermittent SV bigeminy, but without sx's. This morning pt notes he may have had a few minutes of L chest discomfort around 11 pm, but resolved spontaneously after a few minutes, and he did not notify nurse. Yesterday afternoon, he developed increased abdominal discomfort, and was noted to have urinary retention, so Colvin catheter was replaced, with an order to irrigate as needed. Currently, he says he feels just fine. He denies fever or chills, headaches or dizziness, chest pain or palpitations, shortness of breath or wheezing. He says he still has some tenderness in his, similar to the discomfort he had yesterday. He denies nausea or vomiting, constipation or diarrhea. He has continued to have hematuria overnight, with some blood clots in the urine. Colvin catheter remains in place. Late this afternoon, the patient says he feels fine. Colvin catheter was pulled earlier today. He has been voiding large amounts of urine, which is still slightly pink tinged, but he has no significant residual. He only occasionally has a sharp fleeting pain in the left lower quadrant area - Constitutional Vitals: Vital Signs Temp Pulse Resp BP Pulse Ox 97.9 F 130 H 18 99/61 95 05/14/17 04:00 05/14/17 04:00 05/14/17 04:00 05/14/17 04:00 05/14/17 04:00 Period Temp Pulse Resp BP Sys/Fox Pulse Ox Last 24 Hr 97.3 F-99.3 F 73-130 11-20 99-183/53-97 90-99 Intake and Output 05/13/17 05/13/17 05/14/17 13:59 21:59 05:59 Intake Total 1905 / 1905 50 / 50 1805 / 1805 Output Total 725 / 725 775 / 775 2400 / 2400 Balance 1180 / 1180 -725 / -725 -595 / -595 Weight 173 lb Patient Weight 05/14/17 05:59 Weight 173 lb Intake & Output: Intake & Output 05/13/17 05/13/17 05/14/17 13:59 21:59 05:59 Intake Total 1905 / 1905 50 / 50 1805 / 1805 Output Total 725 / 725 775 / 775 2400 / 2400 Balance 1180 / 1180 -725 / -725 -595 / -595 Weight 173 lb Intake: IV 1005 / 1005 50 / 50 1005 / 1005 Zosyn 3.375 gm In 50 / 50 Dextrose 5% in Water 50 ml @ 100 mls/hr IV Q6H EVELYN Rx#:[id number] Potassium Chloride 10 Meq 1005 / 1005 1005 / 1005 In Sodium Chloride 0.45% 1,000 ml @ 100 mls/hr IV .Q10H3M EVELYN Rx#: [id number] Oral 800 / 800 IV - Manual Only 900 / 900 Output: Urine Catheter Amount 575 / 575 625 / 625 2400 / 2400 Void Amount 150 / 150 150 / 150 Other: # Voids 1 On exam, the patient is awake and alert, and is in no acute distress. Neck is supple without obvious JVD or lymphadenopathy. Cardiac exam shows regular rate and rhythm with a tachycardic rate. No murmurs , rubs, gallops are noted. Lungs: Show few crackles at the bases, but otherwise are clear to auscultation. Abdomen: Is fairly soft, with mild diffuse tenderness. There is no guarding or rebound. Bowel sounds are active. Extremities show no edema. Neurologic exam is nonfocal grossly. Medical - PN: Obj Da - Labs CBC & Chem 7: 05/14/17 04:56 05/14/17 04:56 Labs: Abnormal Lab Results 05/13/17 05/13/17 05/13/17 10:41 06:40 06:40 RBC 3.68 L Hgb 11.9 L Hct 35.4 L Plt Count 116 L Gran % 82.4 H Lymph % (Auto) 9.8 L Lymph # (Auto) 0.9 L POC PT 15.1 H POC INR 1.3 H Carbon Dioxide 21 L BUN 28 H Creatinine 1.4 H Glucose 112 H Phosphorus 2.1 L GGT 76 H ALT 57 H Total Protein 5.4 L Albumin 3.0 L May 14: Blood cultures from May 12 are growing gram-positive cocci in chains, 2 out of 4 bottles Chest x-ray: Moderate size hiatal hernia. 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 Lungs are clear. CBC: White blood cell count 8.9 thousand, hemoglobin 12, hematocrit 35, platelets 120,000 D-dimer is elevated at 10.9 BNP elevated at [address] [place] troponin less than 0.01 Chemistry panel: Electrolytes are normal. Glucose 136. Phosphorus low at 2.3, GGT elevated at 83, ALT lower at 45 EKG at 30: Shows sinus tachycardia at a rate of 134. There is minimal ST elevation noted in leads II 3, F, and a suggestion of minimal ST elevation in leads V4 through V6. Occasional PVC is noted. There is left axis deviation, and prolonged QT interval of 502. May 13: EKG done at 8:20 PM: Shows sinus rhythm at a rate of 70, with intermittent supraventricular bigeminy, and possible early right bundle branch block. No ST- T changes are noted. These findings are new when compared to his EKG from May 13 at 07:43. Urine culture is still pending. May 12: CBC differential shows white blood cell count of 12,500, hemoglobin 13, hematocrit 39.7, platelets 141,000, an absolute granulocyte count of 11,000, lymphocyte count 900 Lactic acid is normal at 1.0 next AST is elevated at 52, ALT 79, alk phos 124 Urinalysis: Specific gravity 1.024, protein 30 mg, glucose 50 mg, 250 leukocyte esterase, 73 red cells, 45 white blood cells May 11: Urine culture: No growth so far CT scan: Bilateral kidney stones, largest in the left renal pelvis and measuring 1.4 cm. Moderate hydronephrosis on the left side, due to a cluster of stones in the distal left ureter. 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 Subtle emphysema of both lower lobes. [place]. Moderate prostate enlargement. Advanced atherosclerotic disease. Severe spinal canal stenosis at L4-5 due to spurs and bulging disc. Meds: Medications Acetaminophen (Tylenol) 650 mg PO Q6HP PRN PRN Reason: PAIN/FEVER > 101 Clopidogrel Bisulfate (Plavix) 75 mg PO DAILY EVELYN Dextrose (Dextrose 50%) 0 ml IV UD PRN PRN Reason: Hypoglycemia Diagnostic Test (Pha) (Accu-Chek) 1 each FS ACHS [facility]N Docusate Sodium (Colace) 100 mg PO BIDP PRN PRN Reason: Constipation Glucose (Insta-Glucose) 15 gm PO PRN PRN PRN Reason: Hypoglycemia Hydromorphone HCl (Dilaudid) 1 - 2 mg IV Q4-6HP PRN PRN Reason: Pain Piperacillin Sod/Tazobactam (Sod 3.375 gm/ Dextrose) 50 mls @ 100 mls/hr IV Q6H [facility]N Potassium Chloride 10 meq/ (Sodium Chloride) 1,005 mls @ 100 mls/hr IV .Q10H3M [facility]ELYN Sodium Chloride (Sodium Chloride 0.9%) 250 mls @ 20 mls/hr IV .[id number] [facility]ELYN Stop: 05/14/17 18:29 Sodium Chloride (Sodium Chloride 0.9%) 250 mls @ 0 mls/hr IV BOLUS ONE PRN Reason: Wide Open Stop: 05/14/17 05:53 Insulin Human Lispro (Humalog) 0 unit SQ ACHS EVELYN PRN Reason: Protocol Magnesium Hydroxide (Milk Of Magnesia) 30 ml PO DAILYP PRN PRN Reason: Constipation Ondansetron HCl (Zofran) 4 mg IV Q6HP PRN PRN Reason: Nausea And Vomiting Oxycodone/Acetaminophen (Percocet 5-325 Mg) 1 tab PO Q4HP PRN PRN Reason: Pain Pantoprazole Sodium (Protonix) 40 mg IV QAMAC [facility] Sodium Chloride (Saline Flush) 10 ml IV Q8 [facility]ELYN Tamsulosin HCl (Flomax) 0.4 mg PO HS [facility] Medical - PN: A/P - Time Spent With Patient Total time spent is greater than 50% in coordination of care (as documented) at patient's floor/unit and/or counseling patient: Greater than 35 minutes (1) Ureteral stone with hydronephrosis Status: Acute Current Visit: Yes (2) VEL (acute kidney injury) Status: Acute Current Visit: Yes (3) Urinary tract infection Status: Acute Current Visit: Yes (4) Calculus of kidney Status: Acute Current Visit: No (5) Urinary retention Status: Acute Current Visit: No (6) PAD (peripheral artery disease) Problem details: unable to tolerate statin therapy Status: Chronic Current Visit: No - Narrative A/P Narrative: #1. Cardiac. This patient developed a minor arrhythmia last evening, without symptoms. This morning he was noted to be tachycardic, and blood pressure dropped to about 99 systolic. He continues to report that he is asymptomatic. Patient was transferred to telemetry. His sinus tachycardia converted to atrial fibrillation for about 2 hours and then converted back to sinus rhythm. Blood pressure improved after a fluid bolus. This evening, he became tachycardic again with sinus tach at a rate of about 140. -I suspect some cardiac irritability related to issues of pain in his recent procedure. He is having some increased pain this evening, which may be causing the tachycardia. He was given Dilaudid, and we will try some IV Lopressor for his tachycardia. -Patient was given 1 dose of aspirin 81 mg, prior to cardiac enzymes. #2. . This patient presents with urinary tract infection, acute urinary retention, stones of the left kidney and ureter and bladder, causing left hydronephrosis. He has failed outpatient treatment with a Colvin catheter and oral antibiotics, and is now admitted for more aggressive management. -He is now status post stenting and breaking up of some of the stones. His pain is much improved. Colvin catheter was placed for urine retention, possibly due to blood clots. Colvin catheter was discontinued earlier today. So far he seems to be voiding adequately. -Pain control -Cover with IV Zosyn, pending urine culture results. Blood cultures are positive for gram-positive cocci. 3. GI. Elevated LFTs. Of uncertain cause. Improving. -History of GERD and peptic ulcer disease, status post recent EGD. Continue Protonix. 4. Renal. Patient presents with acutely elevated BUN and creatinine. -Improved. 5. CODE STATUS: Full code. 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 6. DVT prophylaxis: Continue Plavix. - Add SCDs. -Patient also has a history of previous DVTs. Continue Plavix. 7. Peripheral vascular disease. Continue Plavix. Early ambulation. Per Dr. Harper, the patient will need to come off Plavix if they are to try to remove his stones, but he suggested we leave him on the Plavix for now, and have him follow-up with his vascular surgeon prior to deciding how to handle his anticoagulation for a procedure. I would expect he would stop the Plavix and go on Lovenox for a week or so, and then stop that a couple of days prior to the procedure. #8. Hyperglycemia, without history of diabetes.. Improved today. - Cover with insulin as needed. Approximately 45 minutes was spent today, interviewing and examining the patient on 3 occasions, reviewing test results, reviewing his case with Dr. Harper, and writing orders. Medical - PN: Qual - VTE Deep Vein Thrombosis/Pulmonary Embolism Present on Admission: No
[2017-05-14] MEDS ORDERED: 0.9 % SODIUM CHLORIDE 250 ML IV SCH ×2 (06:00→07:30)
[2017-05-14] MEDS: 0.9 % SODIUM CHLORIDE 10 ML SYRINGE IV SCH ×3 (06:02→20:35)
[2017-05-14] MEDS: PIPERACILLIN SODIUM/TAZOBACTAM 3.375 GM in DEXTROSE 5% IN WATER 50 ML IV SCH ×4 (06:02→23:45)
[2017-05-14] MEDS ORDERED: ASPIRIN 81 MG TAB.CHEW CHEWED ONE (06:09)
[2017-05-14] MEDS ORDERED: ASPIRIN 81 MG TAB.CHEW ONE (06:21)
[2017-05-14 06:42] LABS: ALT/SGPT 45 U/l (0-40); Albumin/Globulin Ratio 1.2 (1.0-2.3); Alkaline Phosphatase 107 U/L (39-117); Bilirubin,Direct < 0.2 mg/dL (0.0-0.3); Blood Urea Nitrogen 20 mg/dl (8-23); Gamma Glutamyl Transpeptidase 83 U/L (8-61); Magnesium 2.1 mg/dL (1.6-2.5); Uric Acid 2.6 mg/dL (2.5-8.0)
[2017-05-14] MEDS: INSULIN LISPRO 1 UNIT/0.01 ML UNIT SQ SCH ×4 (07:30→20:35)
[2017-05-14] MEDS ORDERED: PANTOPRAZOLE 40 MG VIAL IV SCH (07:30)
[2017-05-14] MEDS: PANTOPRAZOLE 40 MG VIAL IV SCH (07:34)
[2017-05-14] MEDS ORDERED: VANCOMYCIN PER PHARMACY IV SCH (08:37)
[2017-05-14] MEDS ORDERED: CLOPIDOGREL 75 MG TABLET PO SCH (09:00)
--- NOTE | 2017-05-14 09:04 | General Surgery Progress Note ---
Surgical - Auxillary Note - Subjective Patient Information: Note initiated : 05/14/17 at 9:02 am Service Date, if different from initiated Date: [] Patient: Marshall Alberts 82 y/o M admitted on 05/12/17 for N/V, Abd Pain/ Nephrolithiasis, Hydronephrosis, UTI. Chief Complaint: left renal stone patient had episode of hypotension. urine is clearing. May remove catheter and see if he is able to urinate. Can follow up with me or his urologist in [place]. I would see him in a week. continue plavix. greater than 15 minutes spent with patient answering questions and discussing clinical course.
[2017-05-14] MEDS: CLOPIDOGREL 75 MG TABLET PO SCH (09:09)
[2017-05-14] MEDS: VANCOMYCIN 1,000 MG in 0.9 % SODIUM CHLORIDE 250 ML IV SCH ×2 (09:09→20:38)
--- NOTE | 2017-05-14 09:27 | XRay Report ---
HISTORY: Reason for Exam:tachycardia, hypotension Findings: the heart size is normal. There is no congestive heart failure or pleural effusion. A moderate size retrocardiac hiatus hernia is present. Patient has a large goiter involving the left lobe of the thyroid. This is pushing the trachea to the right. The prior CT scan done at [facility] on 04/06/17 revealed the presence of small nodules in the right middle lobe and lateral basal segment left lower lobe. These are too small to visualize on chest x-ray. The lungs are clear. There are postoperative changes in the right shoulder. IMPRESSION: Hiatus hernia and no acute abnormality Interpreted and Authenticated by: Karri Marroquin 05/14/17
[2017-05-14] MEDS: HYDROmorphone 2 MG/ML SYRINGE IV PRN (19:03)
[2017-05-14] MEDS ORDERED: POTASSIUM CHLORIDE 10 MEQ in 0.45 % SODIUM CHLORIDE 1,000 ML IV SCH (19:14)
[2017-05-14] MEDS ORDERED: METOPROLOL TARTRATE 5 MG/5 ML VIAL IV ONE ×3 (19:20→20:13)
[2017-05-14] MEDS ORDERED: DIGOXIN 500 MCG/2 ML AMPUL IV ONE ×2 (20:13→20:37)
[2017-05-14] MEDS ORDERED: TAMSULOSIN 0.4 MG CAPSULE PO SCH (21:00)
[2017-05-15] MEDS: HYDROmorphone 2 MG/ML SYRINGE IV PRN (03:52)
[2017-05-15 05:49] LABS: Basophils # (Auto) 0 K/mcL (0.0-0.3); Basophils % (Auto) 0.2 % (0.0-2.0); Eosinophils # (Auto) 0 K/mcL (0.0-0.7); Eosinophils % (Auto) 0.4 % (0.0-7.0); Granulocytes % (Auto) 67.7 % (38.0-78.0); Lymphocytes # (Auto) 2.3 K/mcL (1.5-4.8); Mean Cell Volume 96.6 fL (80.0-100.0); Mean Corpuscular HGB Conc 33.2 g/dL (31.0-36.0); Mean Corpuscular Hemoglobin 32.1 pg (26.0-34.0); Monocytes # (Auto) 1.3 K/mcL (0.1-0.9); Monocytes % (Auto) 11.7 % (1.0-12.0); Platelet Count 160 K/mcL (140-440); RBC 4.01 M/mcL (4.50-5.90); Red Cell Distribution Width 14.1 % (11.5-14.5)
[2017-05-15] MEDS: 0.9 % SODIUM CHLORIDE 10 ML SYRINGE IV SCH ×2 (05:53→14:29)
[2017-05-15] MEDS: PIPERACILLIN SODIUM/TAZOBACTAM 3.375 GM in DEXTROSE 5% IN WATER 50 ML IV SCH ×2 (05:53→12:10)
[2017-05-15 06:16] LABS: ALT/SGPT 43 U/l (0-40); Albumin 3.1 gm/dL (3.2-5.2); Albumin/Globulin Ratio 1.1 (1.0-2.3); Alkaline Phosphatase 104 U/L (39-117); Bilirubin,Direct < 0.2 mg/dL (0.0-0.3); Blood Urea Nitrogen 22 mg/dl (8-23); Gamma Glutamyl Transpeptidase 86 U/L (8-61); Uric Acid 2.6 mg/dL (2.5-8.0)
[2017-05-15] MEDS: PANTOPRAZOLE 40 MG VIAL IV SCH (07:51)
[2017-05-15] MEDS: INSULIN LISPRO 1 UNIT/0.01 ML UNIT SQ SCH ×2 (07:51→14:28)
[2017-05-15] MEDS: CLOPIDOGREL 75 MG TABLET PO SCH (08:46)
[2017-05-15] MEDS ORDERED: METOPROLOL TARTRATE 25 MG TABLET PO SCH (09:00)
[2017-05-15] MEDS: VANCOMYCIN 1,000 MG in 0.9 % SODIUM CHLORIDE 250 ML IV SCH (10:00)
--- NOTE | 2017-05-15 15:29 | Discharge Summary ---
Medical - DS: Prov Patient information: Note initiated : 05/15/17 at 3:23 pm Patient: Marshall Alberts 82 y/o M admitted on 05/12/17 for N/V, Abd Pain/ Nephrolithiasis, Hydronephrosis, UTI. Date of admission: 05/12/17 20:18 Discharge date: 05/15/17 Primary care physician: Yolanda Odonnell DO, phone number [phone] Admitting clinician: Isah Bird Consults: Dr. Harper, urology. Attending physician on discharge: Isha Bird Medical - DS: Meds - Discharge Medications Prescriptions: Amoxicillin/Potassium Clav [Augmentin] 875 mg PO Q12H #10 tablet Metoprolol Tartrate [Lopressor] 12.5 mg PO BID #60 tablet Active and Home Medications: Discharge medications: Augmentin 875 mg p.o. twice daily for 5 more days Metoprolol 12.5 mg p.o. twice daily, for intermittent A. fib Flomax 0.4 mg nightly Plavix 75 mg daily Zofran ODT 4 mg sublingual every 4 hours as needed nausea [place] 5/325 one every 4 hours as needed Protonix 40 mg daily Previous home Medications: Clopidogrel [Plavix] 75 mg PO DAILY 06/30/15 [History Confirmed 05/12/17 Last Taken 05/10/17 08:00] Tamsulosin [Flomax] 0.4 mg PO HS 06/30/15 [History Confirmed 05/12/17 Last Taken 05/10/17 21:00] pantoprazole 40 mg tablet,delayed release 40 mg PO QDAY 01/27/17 [History Confirmed 05/12/17 Last Taken 05/12/17 15:00] HYDROcodone/APAP 5/325MG [[place] 5/325Mg] 1 tab PO Q4HP PRN #14 tab 05/11/17 [Rx Confirmed 05/12/17 Last Taken 05/11/17] Levofloxacin [Levaquin] 500 mg PO DAILY #7 tab 05/11/17 [Rx Confirmed 05/12/17 Last Taken 05/12/17 10:00] Ondansetron HCl [Zofran ODT] 4 mg SL Q4-6HP PRN #10 tab 08/16/17 [Rx Confirmed 05/12/17 Last Taken 05/12/17 10:00] Medical - DS: Hosp Hospital course: Mr. Alberts is a 82 year old M May 12, 2017: History of present illness: Mr. Alberts is a 82 year old man admitted after failed outpt tx for UTI, nephrolithiasis with hydronephrosis. He reports he was in his normal state of health until 2 days ago, when he developed left lower quadrant discomfort and fullness. He was having some sweats as well as some nausea. He presented to the emergency room yesterday, and was found to have nephrolithiasis, left-sided hydronephrosis, UTI. Colvin catheter was placed, and he was started on IV Levaquin in the ER, and then discharged home on oral Levaquin. Overnight he had more sweats. His family reports that he is just been listless, dizzy, has significant anorexia, and continues to complain of extremely dry mouth. He has had nausea and minimal vomiting. He denies overt fever, headaches, new eye or ear symptoms, sore throat or cough , chest pain or palpitations, shortness of breath. He does not report flank pain. His says he has not had a bowel movement for about 3 days now. Has been tolerating the Colvin catheter since yesterday. ER evaluation shows that his white blood cell count is elevated now, and BUN and creatinine are now in the abnormal range. Patient is now being admitted for failing outpatient treatment. May 13: Today, the patient underwent a cystoscopy with Dr. Harper. Dr. Harper was able to remove some of the ureteral stones, and I believe he placed a stent, but there was enough bleeding that he could not remove the bladder or kidney stones. He had excess bleeding due to his chronic Plavix therapy. The patient tolerated the procedure well, but this afternoon started to have increasing abdominal pain. He had only voided 300 mL of urine over the course of the afternoon, and bladder scan did show urinary retention, so the Colvin catheter was replaced. He is now having irrigation as needed. He is currently feeling quite a bit better, and says his pain is much better control. He otherwise denies fever or chills, headaches or dizziness, chest pain or shortness of breath, nausea or vomiting, diarrhea or constipation. May 14: - called to see pt around 0515 after AM vitals showed increased HR and lower BP. Last evening pt noted to be bradycardic with intermittent SV bigeminy, but without sx's. This morning pt notes he may have had a few minutes of L chest discomfort around 11 pm, but resolved spontaneously after a few minutes, and he did not notify nurse. Yesterday afternoon, he developed increased abdominal discomfort, and was noted to have urinary retention, so Colvin catheter was replaced, with an order to irrigate as needed. Currently, he says he feels just fine. He denies fever or chills, headaches or dizziness, chest pain or palpitations, shortness of breath or wheezing. He says he still has some tenderness in his, similar to the discomfort he had yesterday. He denies nausea or vomiting, constipation or diarrhea. He has continued to have hematuria overnight, with some blood clots in the urine. Colvin catheter remains in place. May 15, 2017: Hospital course: -This patient was admitted with urinary retention, urinary tract infection, and numerous kidney, ureter, bladder stones. He underwent cystoscopy with Dr. Harper, and some of the stones were removed, and a ureteral stent was placed. The other stones could not be tackled, as there was a fair amount of bleeding, likely due to the patient being on Plavix. Colvin catheter was initially pulled , but then patient developed urine with blood clots and some retention, so Colvin was replaced with irrigation. Catheter was discontinued yesterday afternoon, and he has been voiding just fine since then. The patient has been passing tiny stone fragments since then. Hematuria has mostly resolved. Urine culture grew greater than 100,000 nonpathogenic carlo. Blood cultures grew coag negative staph, which is thought to be a contaminant. The patient can now be discharged. He should follow-up with Dr. Harper in a week. Stone fragments were sent for analysis today. Alternatively, he can follow-up with his urologist in [place]. -The evening of his procedure, the patient had some mild bradycardia and bigeminy, and then by morning had developed sinus tachycardia at a rate of 130. He later went into atrial fibrillation, and then a flutter, and then back to sinus rhythm. He has been started on Lopressor. He was given 1 dose of IV digoxin. Echocardiogram was done this morning, but results are still pending. At this time, heart rate and rhythm are normal, and blood pressure is tolerating Lopressor just fine. The patient and his have decided that he should return home this evening, where he would be more comfortable. They are willing to monitor his blood pressure and heart rate at home. He does have known vascular disease, and past history of DVT. He will continue with Plavix at this time. He should probably have follow-up with cardiology, for consideration of a stress nuclear study of some kind. This afternoon, he has no complaints. He has walked in the [place] several times, and does also walk to the bathroom. He finds his fatiguing, but is otherwise not having trouble urinating. He still has occasional twinges of sharp pain in his left lower quadrant, but those are fleeting. He denies fever or chills. He is not having chest pain or palpitations, shortness of breath, nausea or vomiting, diarrhea or constipation or dysuria. On exam, he is in no acute distress. Neck is supple without obvious lymphadenopathy or JVD. Cardiac exam currently shows regular rate and rhythm. Lungs are clear to auscultation. Abdomen is soft and nontender, with normal bowel sounds. Extremities: Show no edema. Neurologic exam is grossly nonfocal. A/P Narrative: #1. Cardiac. This patient developed a minor arrhythmia night before last, without symptoms. Patient was transferred to telemetry. His sinus tachycardia converted to atrial fibrillation for about 2 hours and then converted back to sinus rhythm. Blood pressure improved after a fluid bolus. He had a similar course last evening, bouncing into atrial fibrillation, then atrial flutter, and then back to normal sinus rhythm. He has remained asymptomatic. Echo cardiogram was done this morning, with results still pending. Patient was started on Lopressor 12.5 mg twice daily, which she appears to be tolerating so far. He is feeling fine, and would like to return home. He and his will monitor his blood pressure and heart rate at home. We discussed worrisome symptoms that they should call 911, and he is welcome to call us back this evening if he has any concerns or questions. Otherwise, he should plan on following up with Dr. Odonnell tomorrow or the following day, to review his symptoms. He probably should be referred to cardiology to review his echo, and consider stress imaging. -Continue Plavix. #2. . This patient presents with urinary tract infection, acute urinary retention, stones of the left kidney and ureter and bladder, causing left hydronephrosis. He has failed outpatient treatment with a Colvin catheter and oral antibiotics, and is now admitted for more aggressive management. -He is now status post stenting and breaking up of some of the stones. His pain is much improved. He is voiding just fine. Stones were sent to the lab today for analysis. -He should follow-up with Dr. Harper in approximately 1 week, or with his urologist in [place]. He will likely need further procedures to break up the larger stones. Dr. Harper would like to see him come off of the Plavix prior to a procedure, but in the past he has had to be bridged with Lovenox, for frequent DVTs. Dr. Harper suggested he review this with his vascular surgeon, prior to deciding. -He was covered with IV Zosyn during his admission, and will now be changed to oral Augmentin. Positive urine and blood cultures may well be a contaminant. 3. GI. Elevated LFTs. Of uncertain cause. Improving. -History of GERD and peptic ulcer disease, status post recent EGD. Continue Protonix. 4. Renal. Patient presents with acutely elevated BUN and creatinine. -Improved. 5. CODE STATUS: Full code. His has his power of employment law attorney. 6. DVT prophylaxis: Continue Plavix. - Add SCDs. -Patient also has a history of previous DVTs. Continue Plavix. 7. Peripheral vascular disease. Continue Plavix. Early ambulation. Per Dr. Harper, the patient will need to come off Plavix if they are to try to remove his stones, but he suggested we leave him on the Plavix for now, and have him follow-up with his vascular surgeon prior to deciding how to handle his anticoagulation for a procedure. #8. Hyperglycemia, without history of diabetes.. Improved . Discharge diagnosis: urinary retention, kidney, ureteral, bladder stones. Intermittent a fib/fl - Time Spent with Patient Total time spent providing and/or coordinating discharge services: Greater than 30 minutes Medical - DS: Exam - Constitutional Vitals: Vital Signs Temp Pulse Resp BP BP Pulse Ox 05/15/17 12:00 98.4 F 18 158/91 93 05/15/17 07:45 98.0 F 16 117/75 92 05/15/17 03:55 98.2 F 110 H 16 148/86 96 05/14/17 23:46 98.4 F 110 H 16 129/62 94 05/14/17 19:14 98.6 F 20 126/75 94 05/14/17 16:00 98.6 F 20 112/67 98 Intake and Output 05/15/17 05/15/17 05/15/17 05:59 13:59 21:59 Intake Total 850 / 850 300 / 300 50 / 50 Output Total 700 / 700 600 / 600 Balance 150 / 150 -300 / -300 50 / 50 Intake: IV 50 / 50 300 / 300 50 / 50 Zosyn 3.375 gm In 50 / 50 50 / 50 50 / 50 Dextrose 5% in Water 50 ml @ 100 mls/hr IV Q6H EVELYN Rx#:[id number] Vancomycin 1,000 mg In 250 / 250 Sodium Chloride 0.9% 250 ml @ 250 mls/hr IV Q12H EVELYN Rx#:[id number] Oral 800 / 800 Output: Void Amount 700 / 700 600 / 600 Other: # Bowel Movements 0 Medical - DS: Data Labs on day of discharge: Labs from last 24 hours 05/15/17 05/15/17 05/15/17 10:36 07:52 03:40 WBC 11.6 H RBC 4.01 L Hgb 12.9 L Hct 38.7 L MCV 96.6 MCH 32.1 MCHC 33.2 RDW 14.1 Plt Count 160 MPV 8.6 Gran % 67.7 Lymph % (Auto) 20.0 [place] % (Auto) 11.7 Eos % (Auto) 0.4 Baso % (Auto) 0.2 Gran # 7.8 Lymph # (Auto) 2.3 [place] # (Auto) 1.3 H Eos # (Auto) 0 Baso # (Auto) 0 Sodium Potassium Chloride Carbon Dioxide Anion Gap BUN Creatinine GFR Calculation Glucose Uric Acid Calcium Phosphorus Magnesium Total Bilirubin Direct Bilirubin GGT AST ALT Alkaline Phosphatase Lactate Dehydrogenase Troponin T Total Protein Albumin Globulin Albumin/Globulin Ratio Triglycerides Stone Weight Pending Stone Composition Pending Stone Nidus Pending Vancomycin Trough 12.6 Specimen Type Pending 05/15/17 05/14/17 03:40 20:23 WBC RBC Hgb Hct MCV MCH MCHC RDW Plt Count MPV Gran % Lymph % (Auto) [place] % (Auto) Eos % (Auto) Baso % (Auto) Gran # Lymph # (Auto) [place] # (Auto) Eos # (Auto) Baso # (Auto) Sodium 137 Potassium 3.9 Chloride 104 Carbon Dioxide 23 Anion Gap 10.0 BUN 22 Creatinine 0.9 GFR Calculation 80 Glucose 80 Uric Acid 2.6 Calcium 8.8 Phosphorus 2.6 L Magnesium 2.0 Total Bilirubin 0.5 Direct Bilirubin < 0.2 GGT 86 H AST 26 ALT 43 H Alkaline Phosphatase 104 Lactate Dehydrogenase 327 H Troponin T < 0.01 Total Protein 5.8 L Albumin 3.1 L Globulin 2.7 Albumin/Globulin Ratio 1.1 Triglycerides 135 Stone Weight Stone Composition Stone Nidus Vancomycin Trough Specimen Type Preliminary micro results at discharge 05/12/17 20:59 Blood Culture - Preliminary Blood Coagulase negative staph May 15: Echocardiogram: Report is pending. EKG this morning showed normal sinus rhythm with a normal rate, and no acute ischemic changes. May 14: Blood cultures from May 12 are growing coag negative staph in 1 bottle. Probable contaminant.. Chest x-ray: Moderate size hiatal hernia. 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 Lungs are clear. CBC: White blood cell count 8.9 thousand, hemoglobin 12, hematocrit 35, platelets 120,000 D-dimer is elevated at 10.9 BNP elevated at 1933 troponin less than 0.01 Chemistry panel: Electrolytes are normal. Glucose 136. Phosphorus low at 2.3, GGT elevated at 83, ALT lower at 45 EKG at 05 30: Shows sinus tachycardia at a rate of 134. There is minimal ST elevation noted in leads II 3, F, and a suggestion of minimal ST elevation in leads V4 through V6. Occasional PVC is noted. There is left axis deviation, and prolonged QT interval of 502. May 13: EKG done at 8:20 PM: Shows sinus rhythm at a rate of 70, with intermittent supraventricular bigeminy, and possible early right bundle branch block. No ST- T changes are noted. These findings are new when compared to his EKG from May 13 at 07:43. Urine culture is still pending. May 12: CBC differential shows white blood cell count of 12,500, hemoglobin 13, hematocrit 39.7, platelets 141,000, an absolute granulocyte count of 11,000, lymphocyte count 900 Lactic acid is normal at 1.0 next AST is elevated at 52, ALT 79, alk phos 124 Urinalysis: Specific gravity 1.024, protein 30 mg, glucose 50 mg, 250 leukocyte esterase, 73 red cells, 45 white blood cells May 11: Urine culture: No growth so far CT scan: Bilateral kidney stones, largest in the left renal pelvis and measuring 1.4 cm. Moderate hydronephrosis on the left side, due to a cluster of stones in the distal left ureter. 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 Subtle emphysema of both lower lobes. John David. Moderate prostate enlargement. Advanced atherosclerotic disease. Severe spinal canal stenosis at L4-5 due to spurs and bulging disc. Medical - DS: A/P - Patient/Caregiver Discharge Instructions Activity: resume usual activities as tolerated Diet: Low Sodium (2gm) Additional Instructions: 1. Kidney, ureter, bladder stones. -Continue to drink plenty of fluids. Take antibiotic prescription for the next 5 days, as directed. -Dr. Harper of urology suggest that he have follow-up with your vascular surgeon , so he can decide whether you can just hold your Plavix, or hold the Plavix and use Lovenox, prior to your next urologic procedure. He will likely need another procedure to remove stones. -Please follow-up with Dr. Harper or your urologist in [place], and about 1 week. -Please call your doctor, or come back to the emergency room, for recurrent abdominal pain, fever or chills, or other difficulty urinating. 2. Intermittent cardiac arrhythmia: Atrial fibrillation and atrial flutter. -You have been started on a new medication, metoprolol, 12.5 mg. You should take one twice a day. Please check your blood pressure and pulse prior to doses , and hold if blood pressure is less than 100 systolic, or if heart rate is less than 60. Next -He need to follow-up with your doctor in the next few days, to recheck this. Please have her check the report on your echocardiogram. She may want to refer you to [facility], for further cardiac testing. Discharge medications: Augmentin 875 mg p.o. twice daily for 5 more days Metoprolol 12.5 mg p.o. twice daily, for intermittent A. fib Flomax 0.4 mg nightly Plavix 75 mg daily Zofran ODT 4 mg sublingual every 4 hours as needed nausea [place] 5/325 one every 4 hours as needed Protonix 40 mg daily . Prescriptions: Amoxicillin/Potassium Clav [Augmentin] 875 mg PO Q12H #10 tablet Metoprolol Tartrate [Lopressor] 12.5 mg PO BID #60 tablet - Problem Maintenance (1) Ureteral stone with hydronephrosis Status: Acute (2) VEL (acute kidney injury) Status: Resolved (3) Urinary tract infection Status: Resolved (4) Calculus of kidney Status: Acute (5) Urinary retention Status: Acute (6) PAD (peripheral artery disease) Status: Chronic Comment: unable to tolerate statin therapy (7) Intermittent atrial fibrillation Status: Acute - Follow up Plan Follow up with: Yolanda Odonnell DO [Primary Care Provider] - Ronald Harper MD [Physician] - Disposition: Home, Self-Care Prognosis: Good Rehab Potential: Good I certify that the patient requires SNF services: No Overall status at discharge: patient is progressing back to baseline Medical - DS: Qual - VTE Deep Vein Thrombosis/Pulmonary Embolism Present on Admission: No
--- NOTE | 2017-05-18 09:32 | EKG Interpretations ---
EKG #1: 05/13/2017 Normal sinus rhythm at 70 beats per minute. First-degree AV block. RSR prime. PACs. Left axis deviation. Abnormal EKG. KY:reji Job ID: [id number] Doc ID: [id number] Tye Manzano MD
--- NOTE | 2017-05-18 09:32 | EKG Interpretations ---
EKG #5: 05/15/2017 at 10:05 a.m. This is normal sinus rhythm at 78 beats per minute. PAC. Borderline first-degree AV block. Left axis deviation. This is an abnormal EKG. Sincerely, KY:reji Job ID: [id number] Doc ID: [id number] Tye Manzano MD
--- NOTE | 2017-05-18 09:32 | EKG Interpretations ---
EKG #4: 05/14/2017 at 8:13 p.m. This was most likely atrial flutter with variable block. Heart rate is in the 120s. Nonspecific ST and T-wave abnormalities. Abnormal EKG. Giacomo Job ID: [id number] Doc ID: [id number] Tye Manzano MD
--- NOTE | 2017-05-18 09:32 | EKG Interpretations ---
EKG #3: 05/14/2017 at 7:59 a.m. Normal sinus rhythm of 68 beats per minute. Left axis deviation. Borderline EKG. KY:reji Job ID: [id number] Doc ID: [id number] Tye Manzano MD
--- NOTE | 2017-05-18 09:32 | EKG Interpretations ---
EKG #2: 05/14/2017 at 5:29 a.m. Narrow complex tachycardia. It was either an SVT or perhaps atrial flutter. PVC. RSR prime. Abnormal EKG. KY:reji Job ID: [id number] Doc ID: [id number] Tye Manzano MD
[2017-05-18 14:54] LABS: Specimen Source KIDNEY STONE
== END 2017-05-15 16:40 | disposition home or self-care (01) | DRG 669 ==
LOC: ED 17:41 → MEDSUR 20:18 → ICU 05-14 05:45
PROVIDERS: ADMIT Internal Medicine; ATTEND Internal Medicine

== ENCOUNTER 2020-03-03 12:22 | Inpatient (IN) ==
[2020-03-03] MEDS ORDERED: DILTIAZEM 25 MG/5 ML VIAL IV ONE (12:51)
--- NOTE | 2020-03-03 13:16 | XRay Report ---
INDICATION: dysrhythmia TECHNIQUE: AP portable upright chest x-ray COMPARISON: Previous chest x-rays dated 07/18/2019 and 12/16/2018. Previous CT scan dated 10/08/2018 FINDINGS: Lungs:Lungs are negative. No focal pulmonary parenchymal infiltrate or mass Heart, vascular:No significant cardiomegaly. Pulmonary vascularity is normal. No pulmonary edema or pulmonary congestion Mediastinum, candelaria:Patient has a left substernal goiter. There is a large hiatal hernia. Pleura:No pleural fluid. No pleural-based mass or calcification Skeletal:Negative. Previous right rotator cuff repair IMPRESSION: 1. History of left substernal goiter. Large hiatal hernia. 2. No acute abnormality. No interval change Interpreted and Authenticated by: Ivan Reno 03/03/20
[2020-03-03] MEDS ORDERED: 0.9 % SODIUM CHLORIDE 1,000 ML IV ONE (13:19)
[2020-03-03 13:55] LABS: Basophils # (Auto) 0.06 K/mcL (0.00-0.30); Basophils % (Auto) 0.7 % (0.0-2.0); Eosinophils # (Auto) 0.23 K/mcL (0.00-0.70); Eosinophils % (Auto) 2.5 % (0.0-7.0); Granulocytes % (Auto) 48.3 % (38.0-78.0); Hematocrit 44.3 % (40.1-51.0); Hemoglobin 14.8 g/dL (13.7-17.5); Lymphocytes # (Auto) 3.28 K/mcL (1.50-4.80); Lymphocytes % (Auto) 36.3 % (15.5-49.0); Mean Cell Volume 96.3 fL (80.0-100.0); Mean Corpuscular HGB Conc 33.4 g/dL (31.0-36.0); Mean Platelet Volume 10.3 fL (7.4-10.4); Monocytes % (Auto) 12.2 % (1.0-12.0); Platelet Count 233 K/mcL (140-440)
[2020-03-03 14:07] LABS: Prothrombin Time 13.6 sec (11.9-14.5)
--- NOTE | 2020-03-03 14:11 | Emergency Department Note ---
Arrhythmia/Palpitations HPI - General Chief Complaint: Arrhythmia/Palpitations Stated Complaint: arrhythmia Time Seen by Provider: 03/03/20 12:48 Source: patient Mode of arrival: ambulatory Limitations: no limitations - History of Present Illness HPI Narrative: 85-year-old male comes in for 2-day history of fatigue and atrial fibrillation. He has a known history of intermittent paroxysmal A. fib/flutter. He took 2 metoprolol without success. Currently heart rate is in 130s and 40s. He is not on a blood thinner except Plavix. Denies fever or shortness of breath - Related Data Home Medications Medication Instructions Recorded Confirmed Clopidogrel [Plavix] 75 mg PO DAILY 06/30/15 03/03/20 pantoprazole 40 mg tablet,delayed 40 mg PO QDAY 01/27/17 03/03/20 release Tamsulosin [Flomax] 0.4 mg PO DAILY 05/31/17 03/03/20 aspirin 81 mg tablet,delayed 81 mg PO QDAY 12/16/18 03/03/20 release metoprolol tartrate 25 mg tablet 25 mg PO BID 12/16/18 03/03/20 Previous Rx's Medication Instructions Recorded Methocarbamol [Robaxin-750] 750 mg PO QIDP PRN #60 tab 04/25/18 Allergies Allergy/AdvReac Type Severity Reaction Status Date / Time cilostazol AdvReac Intermediate RAPID HEART Verified 03/03/20 12:27 finasteride [From PROSCAR] AdvReac Intermediate WEAK BP LOW Verified 03/03/20 12:27 hydromorphone [From Dilaudid] AdvReac Intermediate constipatio Verified 03/03/20 12:27 n morphine AdvReac Intermediate VOMITING Verified 03/03/20 12:27 Review of Systems All systems ED: reviewed and negative except as stated. Past Medical History - Past Medical History Attestation: Yes: The following information was validated with the patient. [facility] Narrative: Family History (Last Reviewed 12/20/19 @ 14:42 by SANDHYA Chaney) Father Arthritis Sister Arthritis Cancer Stroke Brother Arthritis Diabetes Mother Cancer Medical History (Last Reviewed 12/20/19 @ 14:42 by SANDHYA Chaney) CAD (coronary artery disease) (Chronic) Hyperlipidemia (Chronic) Abnormal EKG (Chronic) Atypical atrial flutter (Chronic) Atherosclerotic heart disease of [place] coronary artery without angina pectoris (Chronic) Ischemic cardiomyopathy (Chronic) Hypertension (Chronic) Osteoarthritis of both knees (Chronic) Aneurysm artery, femoral (Chronic) Hip pain, right (Chronic) A-fib (Chronic) BPH (benign prostatic hyperplasia) (Chronic) Esophageal hiatal hernia (Chronic) Grade III internal hemorrhoids (Chronic) Kidney stones (Chronic) Hypercholesterolemia (Chronic) Encounter for wellness examination (Chronic) Foreign body in eye (Chronic ~1962) Cataract (Chronic ~2013) Stomach ulcer (Chronic ~2004) Joint pain (Chronic) Blood clot in vein (Chronic) Arthritis (Chronic) PAD (peripheral artery disease) (Chronic ~1986) Acid reflux (Chronic) Obstipation (Acute) Acute chest pain (Chronic 04/06/17) BPH (benign prostatic hyperplasia) (Chronic) Daytime sleepiness (Resolved) BPH (benign prostatic hyperplasia) (Inactive) Past Surgical History (Last Reviewed 12/20/19 @ 14:42 by Isha Escobar [facility]) H/O total knee replacement (Acute) H/O colonoscopy (Chronic) H/O shoulder surgery (Chronic) History of arthroscopy of knee (Chronic) History of cholecystectomy (Chronic) History of colonoscopy (Chronic 02/27/18) History of esophagogastroduodenoscopy (EGD) (Chronic 02/27/18) History of left heart catheterization (Chronic 07/19/19) History of lumbar laminectomy (Chronic 12/03/19) History of repair of rotator cuff (Chronic) H/O foot surgery (Resolved) Medical history: Reports: atrial fibrillation, CAD (coronary artery disease), GI bleed (gastric ulcer), kidney stones, other (periphera vascular disease, hiatal hernia) Psychiatric history: Reports: no psych history Surgical history ED: Reports: angioplasty/stent (Several bypasses in his right groin), orthopedic, other (Rotator cuff repair) - Social History smoking status: Never smoker Alcohol use: Reports: Unknown Drug use: Reports: unknown Physical Exam No acute distress resting comfortably able to answer questions appropriately. He is a reasonable historian. Normocephalic atraumatic. Conjunctive are clear sclerae white nonicteric. No nasal discharge or congestion. Oropharynx pink and moist. Heart is irregularly irregular rhythm on auscultation with congruent radial pulse. Lungs are clear to auscultation bilaterally without wheezes rales rhonchi or respiratory distress. Abdomen is soft nontender nondistended. No pedal edema. Limitations: no limitations Course Vital Signs Temperature 97.2 F 03/03/20 12:22 Pulse Rate 144 H 03/03/20 12:22 Respiratory Rate 18 03/03/20 12:22 Blood Pressure 112/92 03/03/20 12:22 Pulse Oximetry (%) 98 03/03/20 12:22 Temperature 97.2 F 03/03/20 12:22 Pulse Rate 56 L 03/03/20 15:38 Respiratory Rate 9 L 03/03/20 15:38 Blood Pressure 124/89 03/03/20 15:31 Pulse Oximetry (%) 95 03/03/20 15:38 Arrhythmia/Palpitations - Lab Data Lab results reviewed: Yes I reviewed the patient's lab results. Result diagrams: 03/03/20 12:55 03/03/20 12:55 Lab Results 03/03/20 03/03/20 03/03/20 Range/Units 12:55 12:55 12:55 WBC 9.0 (4.50-11.00) K/mcL RBC 4.60 L (4.63-6.08) M/mcL Hgb 14.8 (13.7-17.5) g/dL Hct 44.3 (40.1-51.0) % MCV 96.3 (80.0-100.0) fL MCH 32.2 (26.0-34.0) pg MCHC 33.4 (31.0-36.0) g/dL RDW 13.0 (11.5-14.5) % Plt Count 233 (140-440) K/mcL MPV 10.3 (7.4-10.4) fL Gran % 48.3 (38.0-78.0) % Lymph % (Auto) 36.3 (15.5-49.0) % Williams % (Auto) 12.2 H (1.0-12.0) % Eos % (Auto) 2.5 (0.0-7.0) % Baso % (Auto) 0.7 (0.0-2.0) % Gran # 4.37 (1.80-8.00) K/mcL Lymph # (Auto) 3.28 (1.50-4.80) K/mcL [place] # (Auto) 1.10 H (0.10-0.90) K/mcL Eos # (Auto) 0.23 (0.00-0.70) K/mcL Baso # (Auto) 0.06 (0.00-0.30) K/mcL PT 13.6 (11.9-14.5) sec INR 1.0 (0.9-1.1) Sodium 140 (133-145) mmol/L Potassium 4.6 (3.3-5.1) mmol/L Chloride 107 (96-108) mmol/L Carbon Dioxide 19 L (22-30) mmol/L Anion Gap 14.0 (8-16) BUN 19 (8-23) mg/dl Creatinine 1.0 (0.7-1.2) mg/dl GFR Calculation 69 Glucose 84 (70-105) mg/dL Calcium 10.0 (8.6-10.4) mg/dl Magnesium 2.5 (1.6-2.5) mg/dL Total Bilirubin 0.5 (0.0-1.0) mg/dL AST 27 (0-37) U/l ALT 16 (0-40) U/l Alkaline Phosphatase 145 H (39-117) U/L Troponin T (0-0.03) ng/ml Total Protein 7.2 (5.9-8.4) gm/dL Albumin 4.1 (3.2-5.2) gm/dL Globulin 3.1 (2.2-3.7) gm/dL Albumin/Globulin Ratio 1.3 (1.0-2.3) TSH 1.42 (0.27-5.01) uIU/ml 03/03/20 Range/Units 12:55 WBC (4.50-11.00) K/mcL RBC (4.63-6.08) M/mcL Hgb (13.7-17.5) g/dL Hct (40.1-51.0) % MCV (80.0-100.0) fL MCH (26.0-34.0) pg MCHC (31.0-36.0) g/dL RDW (11.5-14.5) % Plt Count (140-440) K/mcL MPV (7.4-10.4) fL Gran % (38.0-78.0) % Lymph % (Auto) (15.5-49.0) % Williams % (Auto) (1.0-12.0) % Eos % (Auto) (0.0-7.0) % Baso % (Auto) (0.0-2.0) % Gran # (1.80-8.00) K/mcL Lymph # (Auto) (1.50-4.80) K/mcL Williams # (Auto) (0.10-0.90) K/mcL Eos # (Auto) (0.00-0.70) K/mcL Baso # (Auto) (0.00-0.30) K/mcL PT (11.9-14.5) sec INR (0.9-1.1) Sodium (133-145) mmol/L Potassium (3.3-5.1) mmol/L Chloride (96-108) mmol/L Carbon Dioxide (22-30) mmol/L Anion Gap (8-16) BUN (8-23) mg/dl Creatinine (0.7-1.2) mg/dl GFR Calculation Glucose (70-105) mg/dL Calcium (8.6-10.4) mg/dl Magnesium (1.6-2.5) mg/dL Total Bilirubin (0.0-1.0) mg/dL AST (0-37) U/l ALT (0-40) U/l Alkaline Phosphatase (39-117) U/L Troponin T < 0.01 (0-0.03) ng/ml Total Protein (5.9-8.4) gm/dL Albumin (3.2-5.2) gm/dL Globulin (2.2-3.7) gm/dL Albumin/Globulin Ratio (1.0-2.3) TSH (0.27-5.01) uIU/ml - Radiology Data Radiology results reviewed: Yes I reviewed the patient's radiology results. No acute cardiopulmonary disease on chest x-ray - EKG Data EKG attestation: Yes I reviewed and interpreted this EKG., Yes There are no EKG findings of acute coronary syndrome EKG results narrative: EKG shows atrial flutter Disposition Pt seen by CABLE MAKER/PA only: No Clinical Impression: Atrial flutter with rapid ventricular response UTI (urinary tract infection) Qualifiers: Urinary tract infection type: acute cystitis Hematuria presence: with hematuria Qualified Code(s): N30.01 - Acute cystitis with hematuria Hypotension Qualifiers: Hypotension type: hypotension due to hypovolemia Qualified Code(s): I95.89 - Other hypotension Summary: As he is Donald taken 2 doses of metoprolol, we will give him Cardizem for the atrial fibrillation with rapid ventricular response. Start IV fluids and check laboratory. Chest x-ray is unrevealing Urinalysis [id number] dipstick shows large amount of blood and moderate leukocytes. No nitrites. Consistent with UTI. Start Macrobid Single dose of Cardizem 20 mg brought his heart rate down. IV fluids helped bring his blood pressure up-consistent with hypovolemia We monitored him for about 3 hours here in the ER and his pulse gradually trended up so we had to start the Cardizem drip-although he had a few breakthrough episodes of heart rate in the 140s. Likely UTI triggered atrial flutter with RVR. Unfortunately as he is not anticoagulated and his symptoms started greater than 2 days ago it is not clear if he is a candidate for electrocardioversion-he is only on aspirin and Plavix. As he is otherwise stabilized we will avoid doing this. He sees the [facility] as an outpatient I discussed these things with the patient and he is not comfortable with going home as he is feeling significant palpitations and lightheadedness from the hypotension. He will need to come in the hospital for IV fluids, Cardizem drip while treating his urinary tract infection. I discussed case with Dr. Bassett, hospitalist. He agreed to accept the patient for further care and evaluation in the hospital Disposition: Xfer As Inpt ([facility]) Condition: Serious Referrals: Yolanda Odonnell DO [Primary Care Provider] - Baltazar Duran MD [Referring] -
[2020-03-03 14:33] LABS: ALT/SGPT 16 U/l (0-40); AST/SGOT 27 U/l (0-37); Albumin 4.1 gm/dL (3.2-5.2); Albumin/Globulin Ratio 1.3 (1.0-2.3); Alkaline Phosphatase 145 U/L (39-117); Bilirubin,Total 0.5 mg/dL (0.0-1.0); Blood Urea Nitrogen 19 mg/dl (8-23); Carbon Dioxide 19 mmol/L (22-30); Chloride 107 mmol/L (96-108); Globulin 3.1 gm/dL (2.2-3.7); Glomerular Filtration Rate 69; Glucose 84 mg/dL (70-105); Thyroid Stimulating Hormone 1.42 uIU/ml (0.27-5.01)
[2020-03-03] MEDS ORDERED: NITROFURANTOIN SR 100 MG CAPSULE PO ONE (15:10)
[2020-03-03] MEDS: DILTIAZEM 125 MG in 0.9 % SODIUM CHLORIDE 100 ML IV SCH ×2 (15:11→15:23)
--- NOTE | 2020-03-03 15:51 | Internal Med History&Physical ---
Medical - H&P: HPI Patient information: Note initiated : 03/03/20 at 3:47 pm Service Date, if different from initiated Date: [] Patient: Marshall Alberts 85 y/o M admitted on for Arrhythmia. Chief Complaint: [] Chief complaint: Fatigue and palpitation History of present illness: Mr. Albrets is a 85 year old M with a history of CAD status post stents 2019/prior CVA/paroxysmal atrial fibrillation who presents to the ER with progressive fatigue/chest palpitation worsening over the last few days. Patient denied associated symptoms including fever, chest pain, cough or shortness of breath but has been feeling fatigued. He denies diarrhea, changes in medication, missing his usual medication doses. He lives fairly independently with his Shivani in [place]. Denies smoking or excessive alcohol use. Patient denies recent hospitalization or exposure to sick contacts He fell in the beginning of January injuring his shoulder but denies lightheadedness dizziness or loss of consciousness during that episode. Initial work-up in the ER was consistent with A. fib with RVR with rate in 160. Patient was started on diltiazem drip with resultant rate controlled around 90s. Initial cardiac enzymes were negative. Urine dip suspicious for UTI Hospitalist service was consulted for admission in light of A. fib RVR At the time of evaluation patient is alert and oriented. He was able to answer most of the questions. No family members present. Endorses history as above Review of systems 10 point review system was performed and is negative except for ones cussed above Medical - H&P: PMH Medical history: CAD (coronary artery disease) (Chronic) Hyperlipidemia (Chronic) Abnormal EKG (Chronic) Atypical atrial flutter (Chronic) Atherosclerotic heart disease of [place] coronary artery without angina pectoris (Chronic) Ischemic cardiomyopathy (Chronic) Hypertension (Chronic) Osteoarthritis of both knees (Chronic) Aneurysm artery, femoral (Chronic) with bypass graft Hip pain, right (Chronic) A-fib (Chronic) BPH (benign prostatic hyperplasia) (Chronic) Esophageal hiatal hernia (Chronic) Grade III internal hemorrhoids (Chronic) Kidney stones (Chronic) Hypercholesterolemia (Chronic) Encounter for wellness examination (Chronic) Foreign body in eye (Chronic ~1962) Steel in eye 1961 Cataract (Chronic ~2013) Stomach ulcer (Chronic ~2004) Bleeding Ulcer 2006 Joint pain (Chronic) Blood clot in vein (Chronic) 1986, 1994, 2003, [address] [facility] [address] [place], once per year Arthritis (Chronic) PAD (peripheral artery disease) (Chronic ~1986) unable to tolerate statin therapy Acid reflux (Chronic) Obstipation (Acute) Acute chest pain (Chronic 04/06/17) postop BPH (benign prostatic hyperplasia) (Chronic) Dr. Moss at [facility] Daytime sleepiness (Resolved) BPH (benign prostatic hyperplasia) (Inactive) Surgical History H/O total knee replacement (Acute) right TKA 03/2017, Dr. Cabrera H/O colonoscopy (Chronic) H/O shoulder surgery (Chronic) History of arthroscopy of knee (Chronic) History of cholecystectomy (Chronic) History of colonoscopy (Chronic 02/27/18) Recommendation for colonoscopy in 10 years, or sooner if clinically indicated. History of esophagogastroduodenoscopy (EGD) (Chronic 02/27/18) History of left heart catheterization (Chronic 07/19/19) Cardiac Stent placement 07/19/19 History of lumbar laminectomy (Chronic 12/03/19) L4-L5 decompressive laminectomy History of repair of rotator cuff (Chronic) H/O foot surgery (Resolved) rt foot 03/2018 Family History Father Arthritis Sister Arthritis Cancer Stroke Brother Arthritis Diabetes Mother Cancer Social History marital status: smoking status: Never smoker alcohol intake frequency: a few times a month substance use type: does not use Medical - H&P: Meds Home Medications Medication Instructions Recorded Confirmed Type Clopidogrel [Plavix] 75 mg PO DAILY 06/30/15 03/03/20 History pantoprazole 40 mg tablet,delayed 40 mg PO QDAY 01/27/17 03/03/20 History release Tamsulosin [Flomax] 0.4 mg PO DAILY 05/31/17 03/03/20 History Methocarbamol [Robaxin-750] 750 mg PO QIDP PRN #60 tab 04/25/18 03/03/20 Rx aspirin 81 mg tablet,delayed 81 mg PO QDAY 12/16/18 03/03/20 History release metoprolol tartrate 25 mg tablet 25 mg PO BID 12/16/18 03/03/20 History Allergies Allergy/AdvReac Type Severity Reaction Status Date / Time cilostazol AdvReac Intermediate RAPID HEART Verified 03/03/20 12:27 finasteride [From PROSCAR] AdvReac Intermediate WEAK BP LOW Verified 03/03/20 12:27 hydromorphone [From Dilaudid] AdvReac Intermediate constipatio Verified 03/03/20 12:27 n morphine AdvReac Intermediate VOMITING Verified 03/03/20 12:27 Medical - H&P: Exam - Constitutional Vitals: Temp Pulse Resp BP Pulse Ox 97.2 F 56 L 9 L 124/89 95 03/03/20 12:22 03/03/20 15:38 03/03/20 15:38 03/03/20 15:31 03/03/20 15:38 General appearance: no acute distress Exam: Head normocephalic Right eye vision loss from prior injury No scleral icterus No ear nose discharge Oral cavity moist No lymphadenopathy S1-S2 irregular rhythm, ESM grade 1 Nonlabored breathing Diminished breath sounds Abdomen soft nontender nondistended Lower extremity no cyanosis clubbing or joint swelling Skin no suspicious lesion Psych alert cooperative Neuro nonfocal Medical - H&P: Reslt - Labs CBC & Chem 7: 03/03/20 12:55 03/03/20 12:55 Labs: Short CBC 03/03/20 Range/Units 12:55 WBC 9.0 (4.50-11.00) K/mcL Hgb 14.8 (13.7-17.5) g/dL Hct 44.3 (40.1-51.0) % Plt Count 233 (140-440) K/mcL BMP 03/03/20 12:55 Sodium 140 Potassium 4.6 Chloride 107 Carbon Dioxide 19 L BUN 19 Creatinine 1.0 Glucose 84 Calcium 10.0 Cardiac Enzymes 03/03/20 Range/Units 12:55 Troponin T < 0.01 (0-0.03) ng/ml Liver Function 03/03/20 Range/Units 12:55 Total Bilirubin 0.5 (0.0-1.0) mg/dL AST 27 (0-37) U/l ALT 16 (0-40) U/l Alkaline Phosphatase 145 H (39-117) U/L Albumin 4.1 (3.2-5.2) gm/dL Medical - H&P: A/P (1) Atrial flutter with rapid ventricular response Current visit: Yes Status: Acute * A flutter with RVR-history of paroxysmal atrial fibrillation/flutter. Now with RVR. Continue diltiazem drip and transition to oral diltiazem. Echocardiogram. Negative cardiac enzymes. On aspirin Plavix but not on anticoagulation for CVA prophylaxis. Continue telemetry monitoring/PCU admit. Patient follows up with [facility] Bhak[facility] at [facility] * Complicated UTI continue antibiotic coverage * History of hypertension continue metoprolol. * BPH continue tamsulosin. Follows up with urology * History of CVA continue aspirin/Plavix * History of GERD/bleeding ulcers on PPI * History of CAD status post stenting times 2 in 2019-on aspirin Plavix * Prophylaxis heparin Plan * Admit to PCU * Cardiac monitoring/echocardiogram * Diltiazem drip * Antibiotic coverage * Pre-existing medical condition management on home medications as above * PT OT nutrition support * Discharge planning
[2020-03-03 16:12] LABS: Appearance,Urine CLEAR; Bacteria,Urine 0 /hpf (0); Bilirubin,Urine NEG (NEG); Color,Urine YELLOW; Culture Indicated,Urine NO; Glucose,Urine (UA) NEGATIVE (NEG); Ketones,Urine NEG (NEG); Leukocyte Esterase,Urine 500 /uL (NEG); Mucus,Urine FEW /hpf (0); Nitrate,Urine NEG (NEG); Protein,Urine NEG (NEG); Specific Gravity,Urine 1.015 (1.000-1.035); Urine Blood NEG mg/dL (<0.03); Urine RBC 3 /hpf (0-1); Urine Squamous Epithelial Cell 2 /hpf (0-4); Urine WBC 27 /hpf (0-4); Urobilinogen,Urine NEG (NEG)
[2020-03-03] MEDS ORDERED: ACETAMINOPHEN 325 MG TABLET PO PRN (16:57)
[2020-03-03] MEDS ORDERED: MAGNESIUM SULFATE 2 GM/50 ML BAG IV PRN (16:57)
[2020-03-03] MEDS ORDERED: MELATONIN 3 MG TABLET PO PRN (16:57)
[2020-03-03] MEDS ORDERED: ONDANSETRON 4 MG/2 ML VIAL IV PRN (16:57)
[2020-03-03] MEDS ORDERED: POTASSIUM CHLORIDE 40 MEQ in DEXTROSE 5% IN WATER 500 ML IV PRN (16:57)
[2020-03-03] MEDS ORDERED: POLYETHYLENE GLYCOL 3350 17 GM PACKET PO PRN (16:57)
[2020-03-03] MEDS ORDERED: ONDANSETRON 4 MG ODT TABLET SL PRN (16:57)
[2020-03-03] MEDS ORDERED: METHOCARBAMOL 750 MG TABLET PO PRN (16:57)
[2020-03-03] MEDS ORDERED: BISACODYL 10 MG SUPP.RECT PR PRN (16:57)
[2020-03-03] MEDS ORDERED: DILTIAZEM 125 MG in 0.9 % SODIUM CHLORIDE 100 ML IV SCH (16:57)
[2020-03-03] MEDS ORDERED: ACETAMINOPHEN 650 MG/65 ML BOTTLE IV PRN (16:57)
[2020-03-03] MEDS ORDERED: POTASSIUM CHLORIDE 20 MEQ PACKET PO PRN (16:57)
[2020-03-03] MEDS ORDERED: guaiFENesin/CODEINE 10 ML UDC PO PRN (16:57)
[2020-03-03] MEDS: cefTRIAXone 2 GM in DEXTROSE 5% IN WATER 50 ML IV SCH (17:40)
[2020-03-03] MEDS: SENNOSIDES/DOCUSATE SODIUM 1 TAB TABLET PO SCH ×2 (20:31→21:23)
[2020-03-03] MEDS: DOCUSATE SODIUM 100 MG CAPSULE PO SCH ×2 (20:31→21:23)
[2020-03-03] MEDS: HEPARIN 5,000 UNIT/ML VIAL SQ SCH (20:31)
[2020-03-03] MEDS: METOPROLOL TARTRATE 25 MG TABLET PO SCH (20:31)
[2020-03-03] MEDS: 0.9 % SODIUM CHLORIDE 10 ML SYRINGE IV SCH (20:32)
[2020-03-03] MEDS: METOPROLOL TARTRATE 5 MG/5 ML VIAL IV PRN (23:31)
[2020-03-04] MEDS ORDERED: DILTIAZEM 125 MG in 0.9 % SODIUM CHLORIDE 100 ML IV SCH (01:00)
[2020-03-04] MEDS: METOPROLOL TARTRATE 5 MG/5 ML VIAL IV PRN ×2 (01:00→07:14)
[2020-03-04] MEDS: 0.9 % SODIUM CHLORIDE 10 ML SYRINGE IV SCH ×3 (05:34→20:32)
[2020-03-04 06:43] LABS: Mean Cell Volume 99.3 fL (80.0-100.0); Mean Corpuscular HGB Conc 32.6 g/dL (31.0-36.0); Mean Platelet Volume 10.4 fL (7.4-10.4); Platelet Count 211 K/mcL (140-440); RBC 4.33 M/mcL (4.63-6.08); Red Cell Distribution Width 12.9 % (11.5-14.5); WBC 7.6 K/mcL (4.50-11.00)
[2020-03-04 06:55] LABS: ALT/SGPT 15 U/l (0-40); AST/SGOT 23 U/l (0-37); Albumin 3.7 gm/dL (3.2-5.2); Albumin/Globulin Ratio 1.3 (1.0-2.3); Alkaline Phosphatase 134 U/L (39-117); Bilirubin,Direct < 0.2 mg/dL (0.0-0.3); Bilirubin,Total 0.4 mg/dL (0.0-1.0); Blood Urea Nitrogen 17 mg/dl (8-23); Calcium 9.1 mg/dl (8.6-10.4); Carbon Dioxide 20 mmol/L (22-30); Chloride 107 mmol/L (96-108); Globulin 2.8 gm/dL (2.2-3.7); Glomerular Filtration Rate 78; Glucose 85 mg/dL (70-105); Lactate Dehydrogenase 187 U/L (94-250); Phosphorous 2.9 mg/dL (2.7-4.5); Triglycerides 73 mg/dl (<150); Uric Acid 5.2 mg/dL (2.5-8.0)
[2020-03-04] MEDS: DOCUSATE SODIUM 100 MG CAPSULE PO SCH ×2 (07:14→20:30)
[2020-03-04] MEDS: MULTIVIT,THER IRON,CA,FA & MIN 1 TABLET PO SCH (07:14)
[2020-03-04] MEDS: CLOPIDOGREL 75 MG TABLET PO SCH (07:14)
[2020-03-04] MEDS: HEPARIN 5,000 UNIT/ML VIAL SQ SCH ×2 (07:14→20:30)
[2020-03-04] MEDS: METOPROLOL TARTRATE 25 MG TABLET PO SCH (07:14)
[2020-03-04] MEDS: PANTOPRAZOLE 40 MG TABLET PO SCH (07:14)
[2020-03-04] MEDS: ASPIRIN 81 MG TAB.CHEW PO SCH (07:14)
[2020-03-04] MEDS: TAMSULOSIN 0.4 MG CAPSULE PO SCH (07:14)
[2020-03-04] MEDS ORDERED: DILTIAZEM 125 MG in 0.9 % SODIUM CHLORIDE 100 ML IV PRN (07:15)
[2020-03-04 08:52] LABS: Basophils % (Manual) 1 % (0-2); Eosinophils % (Manual) 11 % (0-7); Lymphocytes % 28 % (15-49); Monocytes % (Manual) 10 % (1-12); Platelet Estimate NORMAL (NORMAL); RBC Morphology NORMAL (NORMAL); Segmented Neutrophils % 50 % (38-78)
[2020-03-04] MEDS ORDERED: DILTIAZEM 25 MG/5 ML VIAL IV ONE (08:52)
[2020-03-04] MEDS: cefTRIAXone 2 GM in DEXTROSE 5% IN WATER 50 ML IV SCH (09:24)
--- NOTE | 2020-03-04 09:50 | Internal Med Progress Note ---
Medical - PN: Subj Patient information: Note initiated : 03/04/20 at 9:48 am Service Date, if different from initiated Date: [] Patient: Marshall Alberts 85 y/o M admitted on 03/03/20 for Arrhythmia. Chief Complaint: [] Interval history: Mr. Alberts is a 85 year old M with a history of CAD status post stents 201 9/prior CVA/paroxysmal atrial fibrillation who presents to the ER with progressive fatigue/chest palpitation worsening over the last few days. Patient denied associated symptoms including fever, chest pain, cough or shortness of breath but has been feeling fatigued. He denies diarrhea, changes in medication, missing his usual medication doses. He lives fairly independently with his Shivani in [place]. Denies smoking or excessive alcohol use. Patient denies recent hospitalization or exposure to sick contacts He fell in the beginning of January injuring his shoulder but denies lightheadedness dizziness or loss of consciousness during that episode. Initial work-up in the ER was consistent with A. fib with RVR with rate in 160. Patient was started on diltiazem drip with resultant rate controlled around 90s. Initial cardiac enzymes were negative. Urine dip suspicious for UTI Hospitalist service was consulted for admission in light of A. fib RVR At the time of evaluation patient is alert and oriented. He was able to answer most of the questions. No family members present. Endorses history as above 03/04-persistent a flutter with RVR. Started on diltiazem drip. Transition to oral diltiazem. Denies shortness of breath chest pain nausea vomiting. No overnight events. No additional concerns per staff. - Constitutional Vitals: Vital Signs Temp Pulse Resp BP Pulse Ox 98.1 F 133 H 22 109/79 95 03/04/20 08:01 03/04/20 08:41 03/04/20 09:01 03/04/20 09:01 03/04/20 09:01 Period Temp Pulse Resp BP Sys/Fox Pulse Ox Last 24 Hr 97.2 F-98.1 F 35-144 7-22 92-132/53-97 93-100 Intake and Output 03/03/20 03/04/20 03/04/20 21:59 05:59 13:59 Intake Total 1332 420 Output Total 250 150 Balance 1082 270 Weight 183 lb 8 oz Intake & Output: Intake & Output 03/03/20 03/04/20 03/04/20 21:59 05:59 13:59 Intake Total 1332 420 Output Total 250 150 Balance 1082 270 Weight 183 lb 8 oz Intake: IV 1092 Sodium Chloride 0.9% 1,000 ml @ 1000 Wide Open IV [facility] Rx#: [id number] Cardizem 125 mg In Sodium 42 Chloride 0.9% 100 ml @ 5 MG/HR 5 mls/hr IV Q12H [facility] Rx#: [id number] Rocephin 2 gm In Dextrose 5% in 50 Water 50 ml @ 100 mls/hr IV Q24H [facility] Rx#:[id number] Oral 240 420 Output: Void Amount 250 150 Other: Meal Dinner Breakfast Percent of Meal Consumed 100% 100% Feeding Ability Independent Urine Appearance Clear Urine Color Bright Yellow Urine Odor Normal Stool Color Brown Stool Consistency Soft # Voids 1 1 # Bowel Movements 1 General appearance: no acute distress Exam: A flutter RVR No anxiety Nonlabored breathing Nondistended abdomen Medical - PN: Obj Da - Labs CBC & Chem 7: 03/04/20 05:00 03/04/20 05:00 Labs: Abnormal Lab Results 03/04/20 03/04/20 03/03/20 05:00 05:00 14:50 RBC 4.33 L [place] % (Auto) [place] # (Auto) Eosinophils % (Manual) 11 H Carbon Dioxide 20 L Alkaline Phosphatase 134 H Ur Leukocyte Esterase 500 A Urine RBC 3 H Urine WBC 27 H 03/03/20 03/03/20 12:55 12:55 RBC 4.60 L [place] % (Auto) 12.2 H [place] # (Auto) 1.10 H Eosinophils % (Manual) Carbon Dioxide 19 L Alkaline Phosphatase 145 H Ur Leukocyte Esterase Urine RBC Urine WBC Meds: Medications Acetaminophen (Tylenol) 650 mg PO Q4-6HP PRN; Protocol PRN Reason: Per Pain Protocol/Fever > 101 Aspirin (Aspirin) 81 mg PO QDAY [facility] Last Admin: 03/04/20 07:14 Dose: 81 mg Documented by: Bisacodyl (Dulcolax) 10 mg VT Q2-3DAYS PRN PRN Reason: Constipation Clopidogrel Bisulfate (Plavix) 75 mg PO DAILY [facility] Last Admin: 03/04/20 07:14 Dose: 75 mg Documented by: Docusate Sodium (Colace) 100 mg PO BID [facility] Last Admin: 03/04/20 07:14 Dose: 100 mg Documented by: Guaifenesin/Codeine Phosphate (Robitussin Ac) 10 ml PO Q4HP PRN PRN Reason: Cough Heparin Sodium (Porcine) (Heparin) 5,000 unit SQ Q12 [facility] Last Admin: 03/04/20 07:14 Dose: 5,000 unit Documented by: Acetaminophen (Ofirmev) 650 mg in 65 mls @ 130 mls/hr IV Q6HP PRN; Protocol PRN Reason: Per Pain Protocol/Fever > 101 Magnesium Sulfate (Magnesium Sulfate) 2 gm in 50 mls @ 50 mls/hr IV UD PRN PRN Reason: MG = or < 1.7 Potassium Chloride 40 meq/ (Dextrose) 520 mls @ 130 mls/hr IV UD PRN PRN Reason: K+ = or < 3.5 Ceftriaxone Sodium 2 gm/ (Dextrose) 50 mls @ 100 mls/hr IV Q24H [facility]; Protocol Last Admin: 03/04/20 09:24 Dose: 100 mls/hr Documented by: Diltiazem HCl 125 mg/ Sodium (Chloride) 125 mls @ 5 mls/hr IV Q12HP PRN; Protocol PRN Reason: Tachyarrhythmias Iron Carb/Multivit/[place]/Folic Acid (Multivitamin W/Minerals) 1 tab PO DAILY [facility] Last Admin: 03/04/20 07:14 Dose: 1 tab Documented by: Melatonin (Melatonin 3mg Tablet) 3 mg PO HSP PRN PRN Reason: Insomnia Methocarbamol (Robaxin) 750 mg PO QIDP PRN PRN Reason: Muscle Spasm Metoprolol Tartrate (Lopressor) 5 mg IV Q5M PRN PRN Reason: Heart Rate > 140 bpm Last Admin: 03/04/20 07:14 Dose: 5 mg Documented by: Metoprolol Tartrate (Lopressor) 50 mg PO BID [facility] Ondansetron HCl (Zofran Odt) 4 mg SL Q4-6HP PRN; Protocol PRN Reason: Nausea And Vomiting Ondansetron HCl (Zofran) 4 mg IV Q4-6HP PRN; Protocol PRN Reason: Nausea And Vomiting Pantoprazole Sodium (Protonix) 40 mg PO QDAY [facility] Last Admin: 06/09/20 07:14 Dose: 40 mg Documented by: Polyethylene Glycol (Miralax) 17 gm PO DAILYP PRN PRN Reason: Constipation Potassium Chloride (Klor-Con) 40 meq PO DAILYP PRN PRN Reason: K+ < 3.5 Senna/Docusate Sodium (Senna Plus Tablet) 1 tab PO HS [facility] Last Admin: 03/03/20 21:23 Dose: Not Given Documented by: Sodium Chloride (Saline Flush) 10 ml IV Q8 [facility] Last Admin: 03/04/20 05:34 Dose: 10 ml Documented by: Tamsulosin HCl (Flomax) 0.4 mg PO DAILY [facility] Last Admin: 03/04/20 07:14 Dose: 0.4 mg Documented by: Medical - PN: A/P - Time Spent With Patient Total time spent is greater than 50% in coordination of care (as documented) at patient's floor/unit and/or counseling patient: 25 - 35 minutes (1) Atrial flutter with rapid ventricular response Status: Acute Assessment and plan: * A flutter with RVR-history of paroxysmal atrial fibrillation/flutter. On diltiazem drip. Transition to oral diltiazem in addition to beta-martir. On aspirin for CVA prophylaxis. Echocardiogram pending. Negative cardiac enzymes. Patient follows up with Dr. Bhakta at [facility] * Complicated UTI continue antibiotic coverage. Await cultures * History of hypertension continue metoprolol. * BPH continue tamsulosin. Follows up with urology * History of CVA continue aspirin/Plavix * History of GERD/bleeding ulcers on PPI * History of CAD status post stenting times 2 in 2019-on aspirin Plavix/beta- martir * Prophylaxis heparin Plan * Wean diltiazem as tolerated and transition to oral diltiazem * Cardiac monitoring/await echocardiogram * Continue ABX * Pre-existing medical condition management on home medications as above * PT OT nutrition support * Discharge planning per case management Current Visit: Yes Medical - PN: Qual - VTE Deep Vein Thrombosis/Pulmonary Embolism Present on Admission: No
[2020-03-04] MEDS: METOPROLOL TARTRATE 50 MG TABLET PO SCH ×2 (09:59→20:32)
[2020-03-04] MEDS ORDERED: DILTIAZEM 30 MG TABLET PO SCH (12:00)
[2020-03-04] MEDS: DILTIAZEM 30 MG TABLET PO SCH ×2 (17:12→23:40)
[2020-03-04] MEDS ORDERED: DIGOXIN 500 MCG/2 ML AMPUL IV ONE (17:57)
[2020-03-04] MEDS: SENNOSIDES/DOCUSATE SODIUM 1 TAB TABLET PO SCH (20:30)
[2020-03-05] MEDS: DILTIAZEM 30 MG TABLET PO SCH (05:42)
[2020-03-05 07:02] LABS: Hematocrit 42.7 % (40.1-51.0); Hemoglobin 14.2 g/dL (13.7-17.5); Mean Cell Volume 97.7 fL (80.0-100.0); Mean Corpuscular HGB Conc 33.3 g/dL (31.0-36.0); Platelet Count 212 K/mcL (140-440); RBC 4.37 M/mcL (4.63-6.08); Red Cell Distribution Width 12.7 % (11.5-14.5); WBC 7.7 K/mcL (4.50-11.00)
[2020-03-05 07:36] LABS: ALT/SGPT 14 U/l (0-40); AST/SGOT 21 U/l (0-37); Albumin 3.6 gm/dL (3.2-5.2); Albumin/Globulin Ratio 1.3 (1.0-2.3); Alkaline Phosphatase 125 U/L (39-117); Bilirubin,Direct < 0.2 mg/dL (0.0-0.3); Bilirubin,Total 0.3 mg/dL (0.0-1.0); Blood Urea Nitrogen 16 mg/dl (8-23); Calcium 9.2 mg/dl (8.6-10.4); Carbon Dioxide 21 mmol/L (22-30); Chloride 108 mmol/L (96-108); Globulin 2.7 gm/dL (2.2-3.7); Glomerular Filtration Rate 82; Glucose 87 mg/dL (70-105); Lactate Dehydrogenase 187 U/L (94-250); Triglycerides 102 mg/dl (<150); Uric Acid 5.7 mg/dL (2.5-8.0)
[2020-03-05 07:43] LABS: Eosinophils % (Manual) 2 % (0-7); Lymphocytes % 25 % (15-49); Monocytes % (Manual) 4 % (1-12); Platelet Estimate NORMAL (NORMAL); RBC Morphology NORMAL (NORMAL); Segmented Neutrophils % 69 % (38-78)
[2020-03-05] MEDS: 0.9 % SODIUM CHLORIDE 10 ML SYRINGE IV SCH (09:10)
[2020-03-05] MEDS: TAMSULOSIN 0.4 MG CAPSULE PO SCH (09:11)
[2020-03-05] MEDS: ASPIRIN 81 MG TAB.CHEW PO SCH (09:11)
[2020-03-05] MEDS: MULTIVIT,THER IRON,CA,FA & MIN 1 TABLET PO SCH (09:11)
[2020-03-05] MEDS: HEPARIN 5,000 UNIT/ML VIAL SQ SCH (09:12)
[2020-03-05] MEDS: DOCUSATE SODIUM 100 MG CAPSULE PO SCH (09:12)
[2020-03-05] MEDS: METOPROLOL TARTRATE 50 MG TABLET PO SCH (09:12)
[2020-03-05] MEDS: PANTOPRAZOLE 40 MG TABLET PO SCH (09:12)
[2020-03-05] MEDS: CLOPIDOGREL 75 MG TABLET PO SCH (09:12)
[2020-03-05] MEDS ORDERED: DILTIAZEM 240 MG CAP.XL.24H PO ONE (09:15)
[2020-03-05] MEDS: cefTRIAXone 2 GM in DEXTROSE 5% IN WATER 50 ML IV SCH (09:24)
--- NOTE | 2020-03-05 09:47 | Discharge Summary ---
Medical - DS: Prov Patient information: Note initiated : 03/05/20 at 9:43 am Service Date, if different from initiated Date: [] Patient: Marshall Alberts 85 y/o M admitted on 03/03/20 for Arrhythmia. Chief Complaint: [] Date of admission: 03/03/20 16:45 Discharge date: 03/05/20 Primary care physician: Yolanda Odonnell DO Consults: 03/03/20 15:39 Consult to Physician [CONS] Stat Comment: Consulting Provider: Ryland Treadwell Reason For Exam: Physician to Consult Medical - DS: Meds - Discharge Medications Prescriptions: Diltiazem [Cardizem Cd] 180 mg PO DAILY #30 cap.xl.24h Transmission Status: Received by [facility] 2005 Ciprofloxacin [Cipro] 500 mg PO BID #6 tab Transmission Status: Received by [facility] 2005 Metoprolol Tartrate [Lopressor] 50 mg PO BID #30 tab Transmission Status: Received by [facility] 2005 Active and Home Medications: Home Medications Clopidogrel [Plavix] 75 mg PO DAILY 06/30/15 [History Confirmed 03/03/20 Last Taken 03/03/20] pantoprazole 40 mg tablet,delayed release 40 mg PO QDAY 01/27/17 [History Confirmed 03/03/20 Last Taken 03/03/20] Tamsulosin [Flomax] 0.4 mg PO HS 05/31/17 [History Confirmed 03/03/20 Last Taken 03/02/20] Methocarbamol [Robaxin-750] 750 mg PO QIDP PRN #60 tab 04/25/18 [Rx Confirmed 03/03/20 Last Taken 12/04/19] aspirin 81 mg tablet,delayed release 81 mg PO QDAY 12/16/18 [History Confirmed 03/03/20 Last Taken 03/03/20] Acetaminophen [Tylenol] 1,000 mg PO Q6HP PRN 03/03/20 [History Confirmed 03/03/20 Last Taken 02/25/20] Multivitamin [Daily Multiple Vitamin] 1 each PO DAILY 03/03/20 [History Confirmed 03/03/20 Last Taken 03/03/20] Ciprofloxacin [Cipro] 500 mg PO BID #6 tab 03/05/20 [Rx Last Taken Unknown] Diltiazem [Cardizem Cd] 180 mg PO DAILY #30 cap.xl.24h 03/05/20 [Rx Last Taken Unknown] Metoprolol Tartrate [Lopressor] 50 mg PO BID #30 tab 03/05/20 [Rx Last Taken Unknown] Medical - DS: Hosp Hospital Course: Discharge diagnosis * A flutter with RVR-history of paroxysmal atrial fibrillation/flutter. Initially managed on diltiazem drip. Improved rate control on increased dose of metoprolol/diltiazem. Continue diltiazem 180 daily along with metoprolol 50. Patient currently on aspirin Plavix for history of CVA/CAD and hence would be a high risk additional anticoagulants despite her high chads score. Will defer further discussions to cardiology/PCP. Echocardiogram EF 38% normal left anterior chamber size. Will need follow-up with cardiology for possible ablation if recurrent a flutter/RVR * NYHA class III systolic heart failure currently well compensated. Continue follow with primary care physician for optimization * Complicated UTI continue antibiotic coverage. Continue ciprofloxacin for additional 3 days * History of hypertension continue metoprolol. * BPH continue tamsulosin. Follows up with urology * History of CVA continue aspirin/Plavix * History of GERD/bleeding ulcers on PPI. * History of CAD status post stenting times 2 in 2019-on aspirin Plavix/beta- martir Brief hospital course Mr. Alberts is a 85 year old M with a history of CAD status post stents 20 19/prior CVA/paroxysmal atrial fibrillation who presents to the ER with progressive fatigue/chest palpitation worsening over the last few days. Patient denied associated symptoms including fever, chest pain, cough or shortness of breath but has been feeling fatigued. He denies diarrhea, changes in medication, missing his usual medication doses. He lives fairly independently with his Shivani in [place]. Denies smoking or excessive alcohol use. Patient denies recent hospitalization or exposure to sick contacts He fell in the beginning of January injuring his shoulder but denies lightheadedness dizziness or loss of consciousness during that episode. Initial work-up in the ER was consistent with A. fib with RVR with rate in 160. Patient was started on diltiazem drip with resultant rate controlled around 90s. Initial cardiac enzymes were negative. Urine dip suspicious for UTI Hospitalist service was consulted for admission in light of A. fib RVR At the time of evaluation patient is alert and oriented. He was able to answer most of the questions. No family members present. Endorses history as above 03/04-persistent a flutter with RVR. Started on diltiazem drip. Transition to oral diltiazem. Denies shortness of breath chest pain nausea vomiting. No overnight events. No additional concerns per staff. 03/05-patient responded well to increased dose of metoprolol/addition of Cardizem with adequate rate control. We will follow-up with cardiology as outpatient for possible ablation evaluation. Continue antibiotic for additional 3 days for UTI. Detailed discharge instructions below Discharge diagnosis: . - Time Spent with Patient Total time spent providing and/or coordinating discharge services: Greater than 30 minutes Medical - DS: Exam - Constitutional Vitals: Vital Signs Temp Pulse Resp BP Pulse Ox 03/05/20 08:11 97.7 F 20 115/71 95 03/05/20 07:01 130/104 98 03/05/20 06:58 115/71 97 03/05/20 06:05 97 03/05/20 06:01 110/76 97 03/05/20 05:04 105/78 93 03/05/20 05:03 94 03/05/20 05:01 80/68 94 03/05/20 04:16 92 03/05/20 04:01 98.0 F 18 125/81 95 03/05/20 03:31 93 03/05/20 03:01 115/74 92 03/05/20 02:01 119/92 97 03/05/20 02:00 22 93 03/05/20 01:09 94 03/05/20 01:01 107/62 96 03/05/20 00:11 93 03/05/20 00:01 97.8 F 22 114/76 91 03/04/20 23:24 94 03/04/20 23:01 126/114 94 03/04/20 22:50 94 03/04/20 22:01 132/69 96 03/04/20 21:12 94 03/04/20 21:01 116/67 96 03/04/20 20:33 101/66 95 03/04/20 20:01 91/62 94 03/04/20 19:43 95 03/04/20 19:29 22 95 03/04/20 19:01 99/57 94 03/04/20 18:01 98.1 F 22 114/83 95 03/04/20 17:01 22 120/85 98 03/04/20 16:01 97.5 F 73 107/77 96 03/04/20 15:01 115/78 03/04/20 14:01 97/67 03/04/20 14:00 16 93 03/04/20 13:01 110/60 03/04/20 12:01 97.8 F 16 103/73 93 03/04/20 11:01 100/78 03/04/20 10:01 101/48 Intake and Output 03/04/20 03/05/20 03/05/20 21:59 05:59 13:59 Intake Total 650 100 Output Total 550 700 Balance 100 -600 Intake: Oral 650 100 Output: Void Amount 550 700 Other: Meal Dinner Percent of Meal Consumed 100% Urine Appearance Clear Clear Urine Color Pale Light Karin Urine Odor Normal Normal Stool Color Brown Stool Consistency Soft # Voids 1 1 Weight 181 lb 8 oz Medical - DS: Data Labs on day of discharge: Labs from last 24 hours 03/05/20 03/05/20 05:03 05:03 WBC 7.7 RBC 4.37 L Hgb 14.2 Hct 42.7 MCV 97.7 MCH 32.5 MCHC 33.3 RDW 12.7 Plt Count 212 MPV 10.0 Total Counted 100 Seg Neutrophils % 69 Band Neutrophils % Not Reportable Lymphocytes % 25 Monocytes % (Manual) 4 Eosinophils % (Manual) 2 Platelet Estimate Normal RBC Morphology Normal Sodium 140 Potassium 4.2 Chloride 108 Carbon Dioxide 21 L Anion Gap 11.0 BUN 16 Creatinine 0.8 GFR Calculation 82 Glucose 87 Uric Acid 5.7 Calcium 9.2 Phosphorus 3.0 Magnesium 2.4 Total Bilirubin 0.3 Direct Bilirubin < 0.2 GGT 31 AST 21 ALT 14 Alkaline Phosphatase 125 H Lactate Dehydrogenase 187 Total Protein 6.3 Albumin 3.6 Globulin 2.7 Albumin/Globulin Ratio 1.3 Triglycerides 102 Medical - DS: A/P - Patient/Caregiver Discharge Instructions Activity: increase activity as tolerated Diet: Cardiac Additional Instructions: Follow-up PCP in 5 days Follow-up with cardiology for evaluation of ablation/recurrent a flutter with RVR and underlying management of NYHA class III systolic heart failure with EF 38 % I recommend primary care physician to check CBC BMP UA as a posthospital follow- up in 1 week. Antibiotics for additional 3 days oral ciprofloxacin for UTI Continue aggressive bowel regimen to prevent constipation Continue fall precautions All meals on chair sitting upright at 90 degrees to prevent aspiration Return to ER if worsening fever chills shortness of breath, diarrhea, bleeding Review risk and side effect profile of medications including antibiotics. Side effect may include mild to severe reaction including rash, diarrhea, cdiff and even which can be prevented by close follow-up with PCP and monitoring for side effects Refrain from smoking and alcohol Continue diet and activity as advised Discussed importance of medication adherence Please review medication list with patient prior to discharge Please schedule follow-up with PCP/Providers prior to discharge and provide printouts Prescriptions: Diltiazem [Cardizem Cd] 180 mg PO DAILY #30 cap.xl.24h Transmission Status: Received by [facility] 2005 Ciprofloxacin [Cipro] 500 mg PO BID #6 tab Transmission Status: Received by [facility] 2005 Metoprolol Tartrate [Lopressor] 50 mg PO BID #30 tab Transmission Status: Received by [facility] 2005 - Problem Maintenance (1) Atrial flutter with rapid ventricular response Status: Acute - Follow up Plan Follow up with: Baltazar Duran MD [Referring] - Yolanda Odonnell DO [Primary Care Provider] - Disposition: Home, Self-Care Prognosis: Fair Rehab Potential: Fair I certify that the patient requires SNF services: No Overall status at discharge: patient is progressing back to baseline Medical - DS: Qual - VTE Deep Vein Thrombosis/Pulmonary Embolism Present on Admission: No
== END 2020-03-05 11:32 | disposition home or self-care (01) | DRG 309 ==
LOC: ED 12:22 → ICU 16:45
PROVIDERS: ADMIT Internal Medicine; ATTEND Internal Medicine